=== PATIENT | male | born 1950 | race Caucasian/White ===

== ENCOUNTER 2016-07-01 11:54 | Inpatient (IN) | payer MEDICARE, OTHER ==
[~2016-07-01] VITALS: Ht 170.2 cm; Wt 63.5 kg
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
--- NOTE | 2016-07-01 12:08 | NUR ---
DR YEE AT BEDSIDE FOR EVAL.
--- NOTE | 2016-07-01 12:27 | NUR ---
PT REFUSING BLOOD DRAW. DR YEE AWARE.
[2016-07-01] MEDS ORDERED: OMEP20CA10 PO (12:38)
[2016-07-01] MEDS ORDERED: ALBU8.5H2 IH (12:38)
[2016-07-01] MEDS ORDERED: LISI2.5T2 PO (12:38)
[2016-07-01] MEDS ORDERED: AMIN30LI4 PO (12:38)
[2016-07-01] MEDS ORDERED: ATOR10TA PO (12:38)
[2016-07-01] MEDS ORDERED: MELA5TAB PO (12:38)
[2016-07-01] MEDS ORDERED: MULT-659 PO (12:38)
[2016-07-01] MEDS ORDERED: INSU300I SQ (12:38)
[2016-07-01] MEDS ORDERED: DOCU-270 PO (12:38)
[2016-07-01] MEDS ORDERED: ACET-2605 PO (12:38)
[2016-07-01] MEDS ORDERED: GABA-534 PO (12:38)
[2016-07-01] MEDS ORDERED: CARV3.122 PO (12:38)
[2016-07-01] MEDS ORDERED: ACET-868 PO (12:38)
[2016-07-01] MEDS ORDERED: CLON0.5T4 PO (12:38)
[2016-07-01] MEDS ORDERED: POLY15DR17 EACHEYE (12:38)
[2016-07-01] MEDS ORDERED: FURO40TA5 PO (12:38)
[2016-07-01] MEDS ORDERED: BACL10TA PO (12:38)
[2016-07-01] MEDS ORDERED: MAGN400T26 PO (12:38)
[2016-07-01] MEDS ORDERED: TRAM50TA2 PO (12:38)
--- NOTE | 2016-07-01 12:40 | NUR ---
dairy and food laboratory assistant at bedside for blood draw.
--- NOTE | 2016-07-01 12:41 | NUR ---
pt to radiology for head and c spine ct scan via [facility].
[2016-07-01 12:43] LABS: BASOPHILS # (AUTO) 0.3 /CMM (0.0-0.2); EOSINOPHILS # (AUTO) 0.5 /CMM (0.0-0.7); MEAN CORPUSCULAR HGB CONC 33 g/dl (31.0-36.0); MONOCYTES # (AUTO) 1.1 /CMM (0.1-1.30)
[2016-07-01 12:45] LABS: BASOPHILS % (AUTO) 2.6 % (0.0-2.0); EOSINOPHILS % (AUTO) 4.1 % (0.0-6.0); HEMATOCRIT 46 % (39-51); HEMOGLOBIN 15.3 g/dL (13.5-17.5); LYMPHOCYTES # (AUTO) 2.6 /CMM (0.8-4.8); LYMPHOCYTES % (AUTO) 19.5 % (20.0-44.0); MEAN CORPUSCULAR HEMOGLOBIN 29 PG (26.0-33.0); MEAN CORPUSCULAR VOLUME 88 fL (80-96); MONOCYTES % (AUTO) 7.9 % (2.0-12.0); NEUTROPHILS # (AUTO) 8.8 /CMM (1.8-8.9); NEUTROPHILS % (AUTO) 65.9 % (43.0-81.0); PLATELET COUNT (AUTO) 113 /CMM (150-450); RDW COEFFICIENT OF VARIATION 12.4 (11.5-15.0); WHITE BLOOD COUNT (AUTO) 13.3 K/uL (4.3-11.0)
[2016-07-01 12:52] LABS: CALCIUM, SERUM 8.8 mg/dL (8.5-10.1); CARBON DIOXIDE 28 mmol/L (21-32); CHLORIDE 102 mmol/L (98-107); CREATININE 1.6 mg/dL (0.6-1.3); GFR 43 mL/min (>60); GLUCOSE 273 mg/dL (74-106); POTASSIUM 5.2 mmol/L (3.5-5.1); SODIUM SERUM 133 mmol/L (136-145); UREA NITROGEN, BLOOD 39 mg/dL (7-18)
[2016-07-01 12:56] LABS: INR 1.04 (0.87-1.13); PROTHROMBIN TIME 10.8 SECS (9.5-12.7)
[2016-07-01 13:01] LABS: TROPONIN I < 0.017 ng/mL (0.00-0.056)
--- NOTE | 2016-07-01 13:49 | NUR ---
CALLED SARAH FOR TRANSPORT BACK TO [facility], ETA 90 MIN
--- NOTE | 2016-07-01 15:32 | NUR ---
PT TRANSPORTED BACK TO SNF IN STABLE CONDITION.
[2016-07-01 17:14] LABS: THYROID STIMULATING HORMONE 3.213 uIU/mL (0.358-3.74)
[2016-07-02] MEDS ORDERED: FURO-144 PO (03:30)
[2016-07-02] MEDS ORDERED: OMEP20TA68 PO (03:30)
[2016-07-02] MEDS ORDERED: ALBU8.5H2 INH (03:30)
[2016-07-02] MEDS ORDERED: ATOR80TA PO (03:30)
[2016-07-02] MEDS ORDERED: DOCU-25 PO (03:30)
[2016-07-02] MEDS ORDERED: INSU300I SQ (03:30)
[2016-07-02] MEDS ORDERED: ACET325T53 PO (03:30)
[2016-07-02] MEDS ORDERED: CLON0.5T4 PO (03:30)
[2016-07-02] MEDS ORDERED: LISI2.5T2 PO (03:30)
[2016-07-02] MEDS ORDERED: GABA-534 PO (03:30)
[2016-07-02] MEDS ORDERED: MELA5TAB PO (03:30)
[2016-07-02] MEDS ORDERED: CRAN400T4 PO (03:30)
[2016-07-02] MEDS ORDERED: MULT1TAB73 PO (03:30)
[2016-07-02] MEDS ORDERED: CARV3.122 PO (03:30)
[2016-07-02] MEDS ORDERED: MAGN400T26 PO (03:30)
[2016-07-02] MEDS ORDERED: MAG HYDROX/AL HYDROX/SIMETH 30 ML UDC PO PRN (04:00)
[2016-07-02] MEDS ORDERED: MAGNESIUM HYDROXIDE 30 ML UDC PO PRN (04:00)
[2016-07-02] MEDS ORDERED: ACETAMINOPHEN 325 MG TABLET PO PRN (04:00)
--- NOTE | 2016-07-02 04:31 | NUR ---
GPS/RN NOTE: ADMITTED FROM [facility], INITIALLY CAME FROM [facility], ARRIVED TO THE UNIT AROUND 0240 ACCOMPANIED BY PARAMEDICS VIA STRETCHER. PATIENT ADMITTED ON 5150 HOLD FOR GD. PER HOLD PATIENT WAS AGITATED, CONFUSED, DISORGANIZED, THREATENING STAFF, COMBATIVE, YELLING, SCREAMING, UNABLE TO PROVIDE CARE FOR HIMSELF. PATIENT WAS PLACED IN BED COMFORTABLY, THE 5150 HOLD WAS REVIEWED AND THE DOCUMENTATION APPEARS TO REFLECT THE PRESENTATION OF THE PATIENT. AWAKE, ALERT, ORIENTED X1, CONFUSED, AGITATED, DISORGANIZED, SHOWS NO S/S OF ANY PAIN, NO APPARENT DISTRESS NOTED. RESPIRATION EVEN, BREATHING PATTERN NON-LABORED. COMBATIVE, REFUSED SKIN ASSESSMENT AT THIS TIME. POOR JUDGEMENT, POOR INSIGHT, UNKEMPT, DISHEVELED, POOR HYGIENE. PATIENT IS UNDER THE PSYCHIATRIC SERVICE OF DR. MARTINEZ AND UNDER THE MEDICAL CARE OF Estvean CARVALHO. BELONGINGS CHECKED FOR CONTRABAND. ADVANCED DIRECTIVE PREFERENCE, IMMUNIZATION QUESTIONNAIRE, VALUABLES PUT IN TO SAFE. NEED MED RECON IN AM WITH DR. SINAI Coleman. BED WAS LOCKED AND PLACED ON LOWEST POSITION. WILL CONTINUE TO MONITOR Q 15 MINS. TO MAINTAIN SAFETY.
--- NOTE | 2016-07-02 06:10 | NUR ---
GPS/RN NOTE: UNABLE TO NOTIFY FAMILY ABOUT ADMISSION TO [facility], NO INFORMATION GIVEN.
--- NOTE | 2016-07-02 06:11 | NUR ---
GPS/RN NOTE: MRSA SCREEN DONE.
[2016-07-02 08:00] VITALS: BP 149/95
[2016-07-02] MEDS: GABAPENTIN 300 MG CAPSULE PO SCH (11:30)
[2016-07-02] MEDS: CARVEDILOL 3.125 MG TABLET PO SCH ×2 (11:30→16:41)
[2016-07-02] MEDS: MAGNESIUM OXIDE 400 MG TABLET PO SCH ×2 (11:30→16:41)
[2016-07-02] MEDS: POLYVINYL ALCOHOL 15 ML BOTTLE EACHEYE SCH ×2 (12:00→16:42)
[2016-07-02] MEDS: HEPARIN SODIUM, PORCINE 5000 UNITS/1 ML VIAL SQ SCH ×3 (12:00→21:36)
[2016-07-02] MEDS ORDERED: DEXTROSE 50%-WATER 50 ML DISP.SYRIN IV PRN (12:00)
[2016-07-02] MEDS: PANTOPRAZOLE 40 MG TABLET.DR PO SCH (12:00)
[2016-07-02] MEDS: BLOOD SUGAR DIAGNOSTIC 1 EACH STRIP IN SCH ×3 (12:20→22:00)
[2016-07-02] MEDS: INSULIN REGULAR, HUMAN 100 UNIT/ML 3 ML VIAL SQ PRN ×2 (12:22→12:33)
--- NOTE | 2016-07-02 12:31 | NUR ---
BS IS 328, PT. REFUSED FOR 8 UNITS OF HUMULIN R, EXPLAINED ON THE IMPORTANCE AND STILL REFUSING AND SAID " I DON'T CARE IF IT'S HIGH, I DON'T WANT IT'. CHARGE NURSE MADE AWARE
--- NOTE | 2016-07-02 12:40 | NUR ---
PT. REFUSED TO TAKE PO MEDS AND REFUSED HEPARIN INJECTION, EXPLAINED ON THE IMPORTANCE AND THE RISK OF NOT TAKING AND PT. STILL REFUSING AND SAID " I DON'T WANT NOTHING". WILL CONTINUE TO MONITOR.
--- NOTE | 2016-07-02 13:00 | NUR ---
PT. REFUSED LABS, WAS EXPLAINED ON THE IMPORTANCE AND PT. STILL REFUSING.
[2016-07-02] MEDS ORDERED: ALBUTEROL FS 2.5 MG/3 ML VIAL.NEB NEB PRN (13:30)
[2016-07-02] MEDS: ALBUTEROL FS 2.5 MG/3 ML VIAL.NEB NEB SCH (15:30)
[2016-07-02 16:00] VITALS: BP 150/90
[2016-07-02] MEDS: QUETIAPINE FUMARATE 25 MG TABLET PO SCH (16:41)
--- NOTE | 2016-07-02 17:33 | NUR ---
PT. REFUSED ACCU CHECK, EXPLAINED ON THE IMPORTANCE AND STILL REFUSING AND SAID I DON'T NEED IT.
--- NOTE | 2016-07-02 17:58 | NUR ---
PT. REFUSED LABS AGAIN AND AND INSISTING TO SAY NO.
--- NOTE | 2016-07-02 19:26 | NUR ---
GPS/RN NOTE: PATIENT RESTING IN BED, AWAKE, ALERT, CONFUSED. NO APPARENT DISTRESS NOTED.
[2016-07-02 20:00] VITALS: BP 108/62
[2016-07-02] MEDS: DIVALPROEX SODIUM 250 MG TABLET.DR PO SCH (21:31)
[2016-07-02] MEDS: INSULIN DETEMIR 100 UNIT/ML CARTRIDGE SQ SCH ×2 (22:00→22:52)
[2016-07-02] MEDS: ATORVASTATIN 10 MG TABLET PO SCH (22:49)
[2016-07-02] MEDS: QUETIAPINE FUMARATE 100 MG TABLET PO SCH (22:50)
[2016-07-03] MEDS: ALBUTEROL FS 2.5 MG/3 ML VIAL.NEB NEB SCH ×4 (00:11→23:30)
[2016-07-03] MEDS: BLOOD SUGAR DIAGNOSTIC 1 EACH STRIP IN SCH ×4 (07:26→21:39)
[2016-07-03] MEDS: INSULIN REGULAR, HUMAN 100 UNIT/ML 3 ML VIAL SQ PRN ×3 (07:28→21:50)
[2016-07-03] MEDS: LORAZEPAM 0.5 MG TABLET PO PRN (08:16)
--- NOTE | 2016-07-03 08:16 | NUR ---
ADMINISTERED ATIVAN 0.5 MG PO PRN FOR ANXIETY, V/S TAKEN, BP-167/92, P-79, CONTINUED MONITORING.
[2016-07-03] MEDS: TRAMADOL HCL 50 MG TABLET PO SCH (08:20)
[2016-07-03] MEDS: MULTIVIT, IRON, MIN NO. 8, FA 1 TAB TABLET PO SCH (08:21)
[2016-07-03] MEDS: CARVEDILOL 3.125 MG TABLET PO SCH ×2 (08:21→17:00)
[2016-07-03] MEDS: DIVALPROEX SODIUM 250 MG TABLET.DR PO SCH ×2 (08:21→21:35)
[2016-07-03] MEDS: MULTIVITAMINS,THERAPEUTIC 1 UDTAB TABLET PO SCH (08:21)
[2016-07-03] MEDS: MAGNESIUM OXIDE 400 MG TABLET PO SCH ×2 (08:21→17:53)
[2016-07-03] MEDS: QUETIAPINE FUMARATE 25 MG TABLET PO SCH ×2 (08:21→17:53)
[2016-07-03] MEDS: PANTOPRAZOLE 40 MG TABLET.DR PO SCH (08:21)
[2016-07-03] MEDS: GABAPENTIN 300 MG CAPSULE PO SCH (08:21)
[2016-07-03] MEDS: DOCUSATE SODIUM 100 MG CAPSULE PO SCH (08:21)
[2016-07-03] MEDS: POLYVINYL ALCOHOL 15 ML BOTTLE EACHEYE SCH ×2 (08:22→17:54)
[2016-07-03] MEDS: HEPARIN SODIUM, PORCINE 5000 UNITS/1 ML VIAL SQ SCH ×2 (08:28→21:36)
[2016-07-03 08:34] VITALS: BP 167/92
[2016-07-03 15:35] LABS: BASOPHILS # (AUTO) 0.1 /CMM (0.0-0.2); BASOPHILS % (AUTO) 0.5 % (0.0-2.0); EOSINOPHILS # (AUTO) 0.4 /CMM (0.0-0.7); EOSINOPHILS % (AUTO) 3.6 % (0.0-6.0); HEMATOCRIT 45 % (39-51); HEMOGLOBIN 15.2 g/dL (13.5-17.5); LYMPHOCYTES # (AUTO) 3.1 /CMM (0.8-4.8); LYMPHOCYTES % (AUTO) 26.5 % (20.0-44.0); MEAN CORPUSCULAR HEMOGLOBIN 29 PG (26.0-33.0); MEAN CORPUSCULAR HGB CONC 33 g/dl (31.0-36.0); MEAN CORPUSCULAR VOLUME 88 fL (80-96); MONOCYTES # (AUTO) 0.8 /CMM (0.1-1.30); MONOCYTES % (AUTO) 7.2 % (2.0-12.0); NEUTROPHILS # (AUTO) 7.3 /CMM (1.8-8.9); NEUTROPHILS % (AUTO) 62.2 % (43.0-81.0); PLATELET COUNT (AUTO) 181 /CMM (150-450); RDW COEFFICIENT OF VARIATION 13.6 (11.5-15.0); RED BLOOD CELL COUNT(AUTO) 5.17 MIL/uL (4.5-6.0); WHITE BLOOD COUNT (AUTO) 11.7 K/uL (4.3-11.0)
[2016-07-03 15:59] LABS: ALBUMIN 3.5 g/dL (3.4-5.0); BILIRUBIN,TOTAL 0.4 mg/dL (0.2-1.0); CALCIUM, SERUM 8.8 mg/dL (8.5-10.1); CREATININE 1.7 mg/dL (0.6-1.3); MAGNESIUM 2.4 mg/dL (1.8-2.4); PHOSPHORUS 3.6 mg/dL (2.5-4.9); POTASSIUM 4.8 mmol/L (3.5-5.1); TOTAL PROTEIN, SERUM 7.9 g/dL (6.4-8.2)
[2016-07-03 16:06] VITALS: BP 104/62
[2016-07-03 20:00] VITALS: BP 104/64
[2016-07-03] MEDS: TEMAZEPAM 7.5 MG CAPSULE PO PRN (21:40)
[2016-07-03] MEDS: ATORVASTATIN 10 MG TABLET PO SCH (21:40)
[2016-07-03] MEDS: QUETIAPINE FUMARATE 100 MG TABLET PO SCH (21:40)
[2016-07-03] MEDS: INSULIN DETEMIR 100 UNIT/ML CARTRIDGE SQ SCH (21:48)
[2016-07-04] MEDS: ALBUTEROL FS 2.5 MG/3 ML VIAL.NEB NEB SCH ×3 (07:35→23:30)
[2016-07-04] MEDS: BLOOD SUGAR DIAGNOSTIC 1 EACH STRIP IN SCH ×4 (07:40→21:48)
[2016-07-04] MEDS: INSULIN REGULAR, HUMAN 100 UNIT/ML 3 ML VIAL SQ PRN ×2 (07:41→12:15)
[2016-07-04 08:00] VITALS: BP 145/90
[2016-07-04] MEDS: GABAPENTIN 300 MG CAPSULE PO SCH (09:08)
[2016-07-04] MEDS: LORAZEPAM 0.5 MG TABLET PO PRN ×2 (09:08→09:13)
[2016-07-04] MEDS: QUETIAPINE FUMARATE 25 MG TABLET PO SCH ×2 (09:08→16:50)
[2016-07-04] MEDS: TRAMADOL HCL 50 MG TABLET PO SCH (09:09)
[2016-07-04] MEDS: CARVEDILOL 3.125 MG TABLET PO SCH ×2 (09:10→16:51)
[2016-07-04] MEDS: DIVALPROEX SODIUM 250 MG TABLET.DR PO SCH ×2 (09:10→21:00)
--- NOTE | 2016-07-04 09:14 | NUR ---
ADMINISTERED ATIVAN 0.5 MG PO PRN FOR ANXIETY, IRRITABLE, V/S TAKEN BP-145/90, P-90, CONTINUED MONITORING.
[2016-07-04] MEDS: PANTOPRAZOLE 40 MG TABLET.DR PO SCH (09:16)
[2016-07-04] MEDS: MAGNESIUM OXIDE 400 MG TABLET PO SCH ×2 (09:16→16:36)
[2016-07-04] MEDS: MULTIVITAMINS,THERAPEUTIC 1 UDTAB TABLET PO SCH (09:16)
[2016-07-04] MEDS: MULTIVIT, IRON, MIN NO. 8, FA 1 TAB TABLET PO SCH (09:16)
[2016-07-04] MEDS: DOCUSATE SODIUM 100 MG CAPSULE PO SCH (09:16)
[2016-07-04] MEDS: POLYVINYL ALCOHOL 15 ML BOTTLE EACHEYE SCH ×2 (09:17→16:36)
[2016-07-04] MEDS: HEPARIN SODIUM, PORCINE 5000 UNITS/1 ML VIAL SQ SCH ×2 (09:18→21:00)
[2016-07-04 16:00] VITALS: BP 110/63
[2016-07-04 20:19] VITALS: BP 147/99
--- NOTE | 2016-07-04 21:44 | NUR ---
GPS/RN NOTE: PATIENT REFUSED DEPAKOTE 250 MG TAB, OFFERED 2X, STILL REFUSED. PATIENT STATED," SHUT UP."
--- NOTE | 2016-07-04 21:45 | NUR ---
GPS/RN NOTE: HEPARIN 5,000 UNITS SC REFUSED, OFFERED 2X, STILL REFUSED. PATIENT STATED, " SHUT UP."
--- NOTE | 2016-07-04 21:48 | NUR ---
GPS/RN NOTE: PATIENT REFUSED ACCUCHECK 2X. PATIENT STATED, " SHUT UP."
[2016-07-04] MEDS: INSULIN DETEMIR 100 UNIT/ML CARTRIDGE SQ SCH (21:50)
--- NOTE | 2016-07-04 21:50 | NUR ---
GPS/RN NOTE: NO LEVEMIR INSULIN ADMINISTERED, PATIENT REFUSED TO DO ACCUCHECK AT 2200.
[2016-07-04] MEDS: ATORVASTATIN 10 MG TABLET PO SCH (21:51)
--- NOTE | 2016-07-04 21:51 | NUR ---
GPS/RN NOTE: PATIENT REFUSED LIPITOR 10 MG TAB, OFFERED 2X, STILL REFUSED. PATIENT STATED, " SHUT UP."
[2016-07-04] MEDS: QUETIAPINE FUMARATE 100 MG TABLET PO SCH (21:56)
--- NOTE | 2016-07-04 21:57 | NUR ---
GPS/RN NOTE: SEROQUEL TAB PO REFUSED, OFFERED 2X, STILL REFUSED. PATIENT STATED," SHUT UP."
[2016-07-05] MEDS: TEMAZEPAM 7.5 MG CAPSULE PO PRN (02:09)
--- NOTE | 2016-07-05 02:09 | NUR ---
GPS RN NOTE, PATIENT HAS A COMPLAINT OF NOT BEING ABLE TO SLEEP AND WOULD LIKE A SLEEPING AID AT THIS TIME. PATIENT VITAL SIGNS ARE STABLE. GAVE RESTORIL 7.5MG PO HS ORDERED. WILL REASSESS FOR INSOMNIA AND I WILL CONTINUE TO MONITOR THIS PATIENT.
[2016-07-05] MEDS: BACLOFEN (10 MG) 10 MG TABLET PO PRN (02:28)
--- NOTE | 2016-07-05 02:28 | NUR ---
GPS RN NOTE, PATIENT HAS A COMPLAINT OF MUSCLE SPASM AND WOULD LIKE MEDICATION AT THIS TIME. PATIENT VITAL SIGNS ARE STABLE. GAVE BACLOFEN 10MG PO BID ORDERED. WILL REASSESS FOR SPASM AND I WILL CONTINUE TO MONITOR THIS PATIENT.
[2016-07-05] MEDS: BLOOD SUGAR DIAGNOSTIC 1 EACH STRIP IN SCH ×4 (07:55→22:23)
[2016-07-05] MEDS: DOCUSATE SODIUM 100 MG CAPSULE PO SCH (07:56)
[2016-07-05] MEDS: PANTOPRAZOLE 40 MG TABLET.DR PO SCH (07:56)
[2016-07-05] MEDS: POLYVINYL ALCOHOL 15 ML BOTTLE EACHEYE SCH ×2 (07:56→16:23)
[2016-07-05] MEDS: MULTIVITAMINS,THERAPEUTIC 1 UDTAB TABLET PO SCH (07:57)
[2016-07-05] MEDS: MULTIVIT, IRON, MIN NO. 8, FA 1 TAB TABLET PO SCH (07:57)
[2016-07-05] MEDS: TRAMADOL HCL 50 MG TABLET PO SCH (07:57)
[2016-07-05] MEDS: DIVALPROEX SODIUM 250 MG TABLET.DR PO SCH ×2 (07:57→21:53)
[2016-07-05] MEDS: GABAPENTIN 300 MG CAPSULE PO SCH (07:59)
[2016-07-05] MEDS: CARVEDILOL 3.125 MG TABLET PO SCH ×2 (07:59→16:23)
[2016-07-05] MEDS: QUETIAPINE FUMARATE 25 MG TABLET PO SCH ×3 (07:59→22:23)
[2016-07-05] MEDS: MAGNESIUM OXIDE 400 MG TABLET PO SCH ×2 (07:59→16:23)
[2016-07-05 08:00] VITALS: BP 145/65
[2016-07-05] MEDS: HEPARIN SODIUM, PORCINE 5000 UNITS/1 ML VIAL SQ SCH ×2 (08:00→21:53)
[2016-07-05] MEDS: INSULIN REGULAR, HUMAN 100 UNIT/ML 3 ML VIAL SQ PRN ×4 (08:04→22:07)
[2016-07-05] MEDS: ALBUTEROL FS 2.5 MG/3 ML VIAL.NEB NEB SCH ×3 (08:59→23:30)
--- NOTE | 2016-07-05 15:43 | NUR ---
[facility] [address] [facility] [place] [address]. ([phone]). Patient does not have a person to contact. press worker helper spoke to Bere ([phone]) from the facility who confirmed that patient may return to the facility upon discharge. press worker helper will help form a safe and proper discharge.
--- NOTE | 2016-07-05 15:45 | NUR ---
Psychosocial assessment was reviewed and I concur with the information provided. No changes are necessary. Tracey Todd, [facility] [id number] Addendum: 07/05/16 at 1546 by TRACEY TODD SW Amended: Links added.
[2016-07-05 16:00] VITALS: BP 121/66
[2016-07-05 19:56] VITALS: BP 132/56
[2016-07-05] MEDS: ATORVASTATIN 10 MG TABLET PO SCH (21:55)
[2016-07-05] MEDS: INSULIN DETEMIR 100 UNIT/ML CARTRIDGE SQ SCH (22:11)
[2016-07-05] MEDS: QUETIAPINE FUMARATE 100 MG TABLET PO SCH (22:28)
--- NOTE | 2016-07-06 07:07 | NUR ---
PT. REFUSED AM LABS ENCOURAGED FOR LABS STILL REFUSED
[2016-07-06] MEDS: PANTOPRAZOLE 40 MG TABLET.DR PO SCH (07:30)
[2016-07-06] MEDS: BLOOD SUGAR DIAGNOSTIC 1 EACH STRIP IN SCH ×4 (07:30→21:22)
[2016-07-06] MEDS: ALBUTEROL FS 2.5 MG/3 ML VIAL.NEB NEB SCH ×3 (07:35→23:15)
[2016-07-06 08:38] VITALS: BP 149/80
[2016-07-06] MEDS: MULTIVIT, IRON, MIN NO. 8, FA 1 TAB TABLET PO SCH (08:48)
[2016-07-06] MEDS: MAGNESIUM OXIDE 400 MG TABLET PO SCH ×2 (08:48→17:57)
[2016-07-06] MEDS: QUETIAPINE FUMARATE 25 MG TABLET PO SCH ×2 (08:48→17:57)
[2016-07-06] MEDS: HEPARIN SODIUM, PORCINE 5000 UNITS/1 ML VIAL SQ SCH ×2 (08:48→21:14)
[2016-07-06] MEDS: GABAPENTIN 300 MG CAPSULE PO SCH (08:48)
[2016-07-06] MEDS: DIVALPROEX SODIUM 250 MG TABLET.DR PO SCH ×2 (08:48→21:12)
[2016-07-06] MEDS: MULTIVITAMINS,THERAPEUTIC 1 UDTAB TABLET PO SCH (08:49)
[2016-07-06] MEDS: TRAMADOL HCL 50 MG TABLET PO SCH (08:49)
[2016-07-06] MEDS: DOCUSATE SODIUM 100 MG CAPSULE PO SCH (08:49)
[2016-07-06] MEDS: CARVEDILOL 3.125 MG TABLET PO SCH ×2 (08:50→17:57)
[2016-07-06] MEDS: POLYVINYL ALCOHOL 15 ML BOTTLE EACHEYE SCH ×2 (08:51→17:58)
[2016-07-06 10:18] LABS: *SPE ALBUMIN 3.8 g/dL (2.9-4.4); *SPE ALPHA-1-GLOBULIN 0.2 g/dL (0.0-0.4); *SPE ALPHA-2-GLOBULIN 0.9 g/dL (0.4-1.0); *SPE BETA GLOBULIN 1.1 g/dL (0.7-1.3); *SPE GLOBULIN, TOTAL 3.8 g/dL (2.2-3.9); *SPE M-SPIKE Not Observed g/dL (Not Observed); *SPE PROTEIN TOTAL 7.6 g/dL (6.0-8.5); *SPEGAMMA GLOBULIN 1.6 g/dL (0.4-1.8)
[2016-07-06 16:00] VITALS: BP 148/99
[2016-07-06] MEDS: INSULIN REGULAR, HUMAN 100 UNIT/ML 3 ML VIAL SQ PRN ×2 (17:45→21:26)
[2016-07-06 20:56] VITALS: BP 101/54
[2016-07-06] MEDS: QUETIAPINE FUMARATE 100 MG TABLET PO SCH (21:12)
[2016-07-06] MEDS: ATORVASTATIN 10 MG TABLET PO SCH (21:13)
[2016-07-06] MEDS: INSULIN DETEMIR 100 UNIT/ML CARTRIDGE SQ SCH (21:49)
[2016-07-07] MEDS: ALBUTEROL FS 2.5 MG/3 ML VIAL.NEB NEB SCH ×3 (07:35→23:30)
[2016-07-07 08:00] VITALS: BP 151/86
[2016-07-07] MEDS: BLOOD SUGAR DIAGNOSTIC 1 EACH STRIP IN SCH ×4 (08:33→22:05)
[2016-07-07] MEDS: MULTIVIT, IRON, MIN NO. 8, FA 1 TAB TABLET PO SCH (08:34)
[2016-07-07] MEDS: QUETIAPINE FUMARATE 25 MG TABLET PO SCH ×2 (08:34→17:13)
[2016-07-07] MEDS: MULTIVITAMINS,THERAPEUTIC 1 UDTAB TABLET PO SCH (08:34)
[2016-07-07] MEDS: TRAMADOL HCL 50 MG TABLET PO SCH (08:34)
[2016-07-07] MEDS: MAGNESIUM OXIDE 400 MG TABLET PO SCH ×2 (08:34→17:12)
[2016-07-07] MEDS: PANTOPRAZOLE 40 MG TABLET.DR PO SCH (08:34)
[2016-07-07] MEDS: DOCUSATE SODIUM 100 MG CAPSULE PO SCH (08:34)
[2016-07-07] MEDS: GABAPENTIN 300 MG CAPSULE PO SCH (08:34)
[2016-07-07] MEDS: DIVALPROEX SODIUM 250 MG TABLET.DR PO SCH ×3 (08:34→21:00)
[2016-07-07] MEDS: CARVEDILOL 3.125 MG TABLET PO SCH ×2 (08:37→17:13)
[2016-07-07] MEDS: HEPARIN SODIUM, PORCINE 5000 UNITS/1 ML VIAL SQ SCH ×2 (08:41→21:00)
[2016-07-07] MEDS: INSULIN REGULAR, HUMAN 100 UNIT/ML 3 ML VIAL SQ PRN ×3 (08:46→22:06)
[2016-07-07] MEDS: POLYVINYL ALCOHOL 15 ML BOTTLE EACHEYE SCH ×2 (08:47→17:00)
[2016-07-07 13:34] LABS: PTH, INTACT 33 pg/mL (15-65)
--- NOTE | 2016-07-07 15:37 | NUR ---
GPS RN NOTE: DR GUTIERRES NOTIFIED OF PT HASN'T VOIDED SINCE MORNING NO NEW ORDERS AT THIS TIME
[2016-07-07 16:09] VITALS: BP 134/75
--- NOTE | 2016-07-07 18:30 | NUR ---
GPS RN NOTE: STRAIGHT CATCH DONE PT TOLERATED WELL HAD 1000 CC OUT WILL INDORSE TO INCOMING SHIFT TO MONITORING FOR OUTPUT AND RETENTION
[2016-07-07 20:03] VITALS: BP 90/56
[2016-07-07 20:43] LABS: BASOPHILS # (AUTO) 0.1 /CMM (0.0-0.2); BASOPHILS % (AUTO) 0.7 % (0.0-2.0); EOSINOPHILS # (AUTO) 0.5 /CMM (0.0-0.7); EOSINOPHILS % (AUTO) 3.6 % (0.0-6.0); HEMATOCRIT 46 % (39-51); HEMOGLOBIN 15.2 g/dL (13.5-17.5); LYMPHOCYTES # (AUTO) 3.1 /CMM (0.8-4.8); MEAN CORPUSCULAR HEMOGLOBIN 29 PG (26.0-33.0); MEAN CORPUSCULAR HGB CONC 33 g/dl (31.0-36.0); MEAN CORPUSCULAR VOLUME 89 fL (80-96); MONOCYTES # (AUTO) 1.3 /CMM (0.1-1.30); MONOCYTES % (AUTO) 8.8 % (2.0-12.0); NEUTROPHILS # (AUTO) 10.3 /CMM (1.8-8.9); NEUTROPHILS % (AUTO) 66.9 % (43.0-81.0); PLATELET COUNT (AUTO) 161 /CMM (150-450); RDW COEFFICIENT OF VARIATION 13.9 (11.5-15.0); RED BLOOD CELL COUNT(AUTO) 5.22 MIL/uL (4.5-6.0); WHITE BLOOD COUNT (AUTO) 15.4 K/uL (4.3-11.0)
[2016-07-07 20:53] LABS: CALCIUM, SERUM 9.2 mg/dL (8.5-10.1); CREATININE 1.8 mg/dL (0.6-1.3); POTASSIUM 5.1 mmol/L (3.5-5.1)
[2016-07-07 21:02] LABS: INR 1.02 (0.87-1.13); PROTHROMBIN TIME 10.9 SECS (9.5-12.7)
[2016-07-07] MEDS: QUETIAPINE FUMARATE 100 MG TABLET PO SCH (22:00)
[2016-07-07] MEDS: INSULIN DETEMIR 100 UNIT/ML CARTRIDGE SQ SCH (22:00)
[2016-07-07] MEDS: ATORVASTATIN 10 MG TABLET PO SCH (22:00)
--- NOTE | 2016-07-07 22:27 | NUR ---
GPS RN NOTES ; PT. REFUSED ALL NIGHT MEDS ENCOURAGED X 3 STILL REFUSED EXPLAIN RISKS AND BENEFITS STILL REFUSED, NOTIFY CHARGE NURSE ,
--- NOTE | 2016-07-07 22:31 | NUR ---
GPS RN NOTES ; AT 2200 , BS SUGAR 198 PT. REFUSED INSULIN COVERAGE ENCOURAGED X3 STILL REFUSED EXPLAIN RISKS AND BENEFITS
[2016-07-07 23:00] VITALS: BP 112/68
--- NOTE | 2016-07-07 23:30 | NUR ---
GPS RN NOTES; PT. REFUSED @ 7064 BREATHING TREATMENT ENCOURAGE FOR BREATHING TREATMENT STILL REFUSED
--- NOTE | 2016-07-08 06:31 | NUR ---
GPS RN NOTES ; PT REFUSED AM LABS ENCOURAGED FOR LABS STILL REFUSED .
--- NOTE | 2016-07-08 06:32 | NUR ---
GPS RN NOTES; PT. SLEPT 7.5 HR , INCONTINENT X2 , BM X I , DENIES ANY PAIN/ DISCOMFORT DURING SHIFT NO ACUTE DISTRESS NOTED, WILL ENDORSE TO NEXT SHIFT FOR CONTINUITY OF CARE
[2016-07-08] MEDS: BLOOD SUGAR DIAGNOSTIC 1 EACH STRIP IN SCH ×4 (07:30→22:00)
[2016-07-08] MEDS: PANTOPRAZOLE 40 MG TABLET.DR PO SCH (07:30)
[2016-07-08] MEDS: ALBUTEROL FS 2.5 MG/3 ML VIAL.NEB NEB SCH ×2 (07:35→15:11)
[2016-07-08 08:33] VITALS: BP 145/94
[2016-07-08] MEDS: MAGNESIUM OXIDE 400 MG TABLET PO SCH ×2 (09:00→16:58)
[2016-07-08] MEDS: POLYVINYL ALCOHOL 15 ML BOTTLE EACHEYE SCH ×2 (09:00→17:00)
[2016-07-08] MEDS: MULTIVITAMINS,THERAPEUTIC 1 UDTAB TABLET PO SCH (09:00)
[2016-07-08] MEDS: HEPARIN SODIUM, PORCINE 5000 UNITS/1 ML VIAL SQ SCH ×2 (09:00→21:00)
[2016-07-08] MEDS: MULTIVIT, IRON, MIN NO. 8, FA 1 TAB TABLET PO SCH (09:00)
[2016-07-08] MEDS: QUETIAPINE FUMARATE 25 MG TABLET PO SCH ×2 (10:12→16:58)
[2016-07-08] MEDS: CARVEDILOL 3.125 MG TABLET PO SCH ×2 (10:13→16:58)
[2016-07-08] MEDS: DIVALPROEX SODIUM 250 MG TABLET.DR PO SCH ×3 (10:13→21:05)
[2016-07-08] MEDS: GABAPENTIN 300 MG CAPSULE PO SCH (10:13)
[2016-07-08] MEDS: DOCUSATE SODIUM 100 MG CAPSULE PO SCH (10:13)
[2016-07-08] MEDS: TRAMADOL HCL 50 MG TABLET PO SCH (10:14)
[2016-07-08 15:33] VITALS: BP 133/64
[2016-07-08] MEDS: INSULIN REGULAR, HUMAN 100 UNIT/ML 3 ML VIAL SQ PRN (17:01)
[2016-07-08 20:00] VITALS: BP 129/84
[2016-07-08] MEDS: INSULIN DETEMIR 100 UNIT/ML CARTRIDGE SQ SCH (22:00)
--- NOTE | 2016-07-08 22:00 | NUR ---
PT REFUSED BLOOD SUGAR TO BE CHECKED. EXPLAIN THE RISK AND BENEFITS. PT STILL REFUSED.
[2016-07-08] MEDS: TEMAZEPAM 7.5 MG CAPSULE PO PRN (22:23)
[2016-07-08] MEDS: QUETIAPINE FUMARATE 100 MG TABLET PO SCH (22:23)
[2016-07-08] MEDS: ATORVASTATIN 10 MG TABLET PO SCH (22:23)
[2016-07-09] MEDS: ALBUTEROL FS 2.5 MG/3 ML VIAL.NEB NEB SCH ×4 (01:58→23:30)
[2016-07-09 06:30] LABS: APPEARANCE,URINE CLEAR (CLEAR); BILIRUBIN,URINE NEGATIVE (NEGATIVE); BLOOD, URINE NEGATIVE Ery/uL (NEGATIVE); COLOR,URINE YELLOW (YELLOW); KETONES,URINE NEGATIVE (NEGATIVE); LEUKOCYTE ESTERASE ,URINE TRACE (NEGATIVE); NITRITE, URINE NEGATIVE (NEGATIVE); PH,URINE 5.5 (5.0-8.0); PROTEIN,URINE NEGATIVE (NEGATIVE); UGLUCOSE NEGATIVE (NEGATIVE); UROBILINOGEN,URINE 0.2 EU/dL (0.2)
[2016-07-09 06:53] LABS: ADD URINE CULTURE NO; BACTERIA,URINE None seen /HPF (None Seen); RBC,URINE 0-2 /HPF (0-2); SQUAMOUS EPITHELIAL CELL,UR Few /HPF (None Seen)
[2016-07-09] MEDS: PANTOPRAZOLE 40 MG TABLET.DR PO SCH (07:30)
[2016-07-09] MEDS: BLOOD SUGAR DIAGNOSTIC 1 EACH STRIP IN SCH ×4 (07:30→22:00)
[2016-07-09] MEDS: GABAPENTIN 300 MG CAPSULE PO SCH (08:18)
[2016-07-09] MEDS: QUETIAPINE FUMARATE 25 MG TABLET PO SCH ×2 (08:19→17:00)
[2016-07-09] MEDS: DIVALPROEX SODIUM 250 MG TABLET.DR PO SCH ×3 (08:19→22:15)
[2016-07-09] MEDS: CARVEDILOL 3.125 MG TABLET PO SCH ×2 (08:19→17:00)
[2016-07-09] MEDS: TRAMADOL HCL 50 MG TABLET PO SCH (08:20)
[2016-07-09] MEDS: HEPARIN SODIUM, PORCINE 5000 UNITS/1 ML VIAL SQ SCH (08:21)
[2016-07-09] MEDS: MULTIVIT, IRON, MIN NO. 8, FA 1 TAB TABLET PO SCH (08:31)
[2016-07-09] MEDS: MAGNESIUM OXIDE 400 MG TABLET PO SCH ×2 (08:31→17:00)
[2016-07-09] MEDS: DOCUSATE SODIUM 100 MG CAPSULE PO SCH (08:31)
[2016-07-09] MEDS: POLYVINYL ALCOHOL 15 ML BOTTLE EACHEYE SCH ×2 (08:31→17:00)
[2016-07-09 08:32] VITALS: BP 136/54
[2016-07-09] MEDS: MULTIVITAMINS,THERAPEUTIC 1 UDTAB TABLET PO SCH (08:32)
--- NOTE | 2016-07-09 15:24 | NUR ---
GPS RN: PATIENT REFUSED BLOOD DRAW X3, AGITATED, COMBATIVE, KICKING, AND VERBALLY ABUSIVE.
[2016-07-09 16:18] VITALS: BP 124/62
--- NOTE | 2016-07-09 18:34 | NUR ---
GPS RN: PATIENT REFUSED 1700 MEDICATIONS AND ACCUCHECK THROUGHOUT THIS SHIFT. PATIENT IS RESISTIVE WITH CARE, GETS HIGHLY AGITATED, COMBATIVE, AND VERBALLY ABUSIVE WHEN OFFERED MEDICATIONS AND ACCUCHECK. PATIENT KEPT CLEAN AND DRY THROUGHOUT THE SHIFT, HOWEVER, REFUSED TO BE TURNED AND REPOSITIONED, PREFERS TO STAY IN SUPINE POSITION. PATIENT NOTED WITH REDNESS AND EXCORIATION ON THE SACRAL AREA, APPLIED MEPILEX AND Z-GUARD, ORDERED WOUND CONSULT. PATIENT IS NOT IN DISTRESS, VS STABLE, CONTINUE TO MONITOR AND ENDORSE TO THE UPCOMING SHIFT ACCORDINGLY.
[2016-07-09 20:00] VITALS: BP 134/62
--- NOTE | 2016-07-09 21:00 | NUR ---
PT REFUSED BLOOD SUGAR TO BE CHECKED. EXPLAIN THE RISK AND BENEFITS. PT STILL REFUSED. ATTEMPTED TO REPOSITIONED THE PATIENT. PATIENT REFUSED TO BE TURNED AND REPOSITIONED. PT IS VERBALLY ABUSIVE, COMBATIVE. EXPLAIN THE RISK AND BENEFITS. PATIENT NOTED WITH REDNESS AND EXCORIATION ON THE SACRAL AREA. APPLIED MEPILEX AND Z-GUARD. KEPT CLEAN AND DRY AT ALL TIMES. WILL CONTINUE TO MONITOR FOR SAFETY.
[2016-07-09] MEDS: INSULIN DETEMIR 100 UNIT/ML CARTRIDGE SQ SCH (22:00)
[2016-07-09] MEDS: ATORVASTATIN 10 MG TABLET PO SCH (22:15)
[2016-07-09] MEDS: QUETIAPINE FUMARATE 100 MG TABLET PO SCH (22:16)
[2016-07-10] MEDS: PANTOPRAZOLE 40 MG TABLET.DR PO SCH (07:30)
[2016-07-10] MEDS: BLOOD SUGAR DIAGNOSTIC 1 EACH STRIP IN SCH ×4 (07:30→22:00)
[2016-07-10 08:00] VITALS: BP 156/96
[2016-07-10] MEDS: POLYVINYL ALCOHOL 15 ML BOTTLE EACHEYE SCH ×2 (09:00→16:02)
[2016-07-10] MEDS: GABAPENTIN 300 MG CAPSULE PO SCH (09:00)
[2016-07-10] MEDS: TRAMADOL HCL 50 MG TABLET PO SCH (09:00)
[2016-07-10] MEDS: MULTIVITAMINS,THERAPEUTIC 1 UDTAB TABLET PO SCH (09:00)
[2016-07-10] MEDS: DIVALPROEX SODIUM 250 MG TABLET.DR PO SCH ×3 (09:00→21:10)
[2016-07-10] MEDS: QUETIAPINE FUMARATE 25 MG TABLET PO SCH ×2 (09:00→16:02)
[2016-07-10] MEDS: CARVEDILOL 3.125 MG TABLET PO SCH ×2 (09:00→16:02)
[2016-07-10] MEDS: MULTIVIT, IRON, MIN NO. 8, FA 1 TAB TABLET PO SCH (09:00)
[2016-07-10] MEDS: MAGNESIUM OXIDE 400 MG TABLET PO SCH ×2 (09:00→16:02)
[2016-07-10] MEDS: DOCUSATE SODIUM 100 MG CAPSULE PO SCH (09:00)
[2016-07-10] MEDS: ALBUTEROL FS 2.5 MG/3 ML VIAL.NEB NEB SCH ×4 (09:04→23:35)
--- NOTE | 2016-07-10 09:44 | NUR ---
GPS RN NOTE: PT IN BED REFUSED MORNING MEDICATIONS ACCU CHECK REFUSE TO TURNED REPOSITION, REFUSED SKIN ASSESSMENT PT VERBALLY ABUSIVE, COMBATIVE, AGITATED, NON COOPERATIVE, UNABLE TO CONTROL BEHAVIOR WILL CONTINUE MONITORING FOR SAFETY AND BEHAVIOR Q 15 MIN
[2016-07-10] MEDS: LORAZEPAM 0.5 MG TABLET PO PRN (13:43)
--- NOTE | 2016-07-10 15:31 | NUR ---
GPS RN NOTES; PT. REFUSED BREATHING TREATMENT ENCOURAGE FOR BREATHING TREATMENT STILL REFUSED
[2016-07-10 15:56] VITALS: BP 151/90
[2016-07-10] MEDS ORDERED: Z GUARD REMEDY 2 OZ OINT TP PRN (17:00)
--- NOTE | 2016-07-10 17:20 | NUR ---
GPS RN NOTE: PT REFUSED ACCU CHECK IN THIS SHIFT HAD BMX1, URINE X2 WILL CONTINUE MONITORING
[2016-07-10 20:00] VITALS: BP 148/67
[2016-07-10] MEDS: INSULIN DETEMIR 100 UNIT/ML CARTRIDGE SQ SCH (22:00)
[2016-07-10] MEDS: QUETIAPINE FUMARATE 100 MG TABLET PO SCH (22:32)
[2016-07-10] MEDS: ATORVASTATIN 10 MG TABLET PO SCH (22:32)
[2016-07-10] MEDS: TEMAZEPAM 7.5 MG CAPSULE PO PRN (22:32)
[2016-07-11] MEDS: BLOOD SUGAR DIAGNOSTIC 1 EACH STRIP IN SCH ×4 (07:30→21:47)
[2016-07-11] MEDS: ALBUTEROL FS 2.5 MG/3 ML VIAL.NEB NEB SCH ×3 (07:35→23:26)
[2016-07-11 08:00] VITALS: BP 140/78
[2016-07-11] MEDS: DIVALPROEX SODIUM 250 MG TABLET.DR PO SCH ×3 (08:31→21:47)
[2016-07-11] MEDS: DOCUSATE SODIUM 100 MG CAPSULE PO SCH (08:31)
[2016-07-11] MEDS: GABAPENTIN 300 MG CAPSULE PO SCH (08:31)
[2016-07-11] MEDS: QUETIAPINE FUMARATE 25 MG TABLET PO SCH ×2 (08:31→16:50)
[2016-07-11] MEDS: MULTIVIT, IRON, MIN NO. 8, FA 1 TAB TABLET PO SCH (08:31)
[2016-07-11] MEDS: CARVEDILOL 3.125 MG TABLET PO SCH ×2 (08:31→16:50)
[2016-07-11] MEDS: MULTIVITAMINS,THERAPEUTIC 1 UDTAB TABLET PO SCH (08:31)
[2016-07-11] MEDS: TRAMADOL HCL 50 MG TABLET PO SCH (08:31)
[2016-07-11] MEDS: MAGNESIUM OXIDE 400 MG TABLET PO SCH ×2 (08:31→16:49)
[2016-07-11] MEDS: PANTOPRAZOLE 40 MG TABLET.DR PO SCH (08:32)
[2016-07-11] MEDS: POLYVINYL ALCOHOL 15 ML BOTTLE EACHEYE SCH ×2 (08:32→16:50)
[2016-07-11 20:21] VITALS: BP 102/68
[2016-07-11] MEDS: ATORVASTATIN 10 MG TABLET PO SCH (21:47)
[2016-07-11] MEDS: INSULIN DETEMIR 100 UNIT/ML CARTRIDGE SQ SCH (21:48)
[2016-07-11] MEDS: QUETIAPINE FUMARATE 100 MG TABLET PO SCH (21:48)
--- NOTE | 2016-07-12 01:19 | NUR ---
Pt has been very easily irritable; he complied with his noc po meds but refused accucheck/Insulin.
[2016-07-12] MEDS: BACLOFEN (10 MG) 10 MG TABLET PO PRN (04:25)
--- NOTE | 2016-07-12 04:25 | NUR ---
GPS RN NOTE, PATIENT HAS A COMPLAINT OF HAVING MUSCLE SPASMS AND WOULD LIKE MEDICATION AT THIS TIME. PATIENT VITAL SIGNS ARE STABLE. GAVE BACLOFEN 10MG PO BID ORDERED. WILL CONTINUE TO MONITOR THIS PATIENT.
[2016-07-12] MEDS: LORAZEPAM 0.5 MG TABLET PO PRN (05:05)
--- NOTE | 2016-07-12 05:05 | NUR ---
GPS RN NOTE, PATIENT HAS A COMPLAINT OF FEELING ANXIOUS AND WOULD LIKE MEDICATION AT THIS TIME. PATIENT VITAL SIGNS ARE STABLE. GAVE ATIVAN 0.5MG PO Q6HR PRN ORDERED. WILL REASSESS OF ANXIETY AND I WILL CONTINUE TO MONITOR THIS PATIENT.
[2016-07-12] MEDS: ALBUTEROL FS 2.5 MG/3 ML VIAL.NEB NEB SCH ×3 (07:35→23:09)
[2016-07-12] MEDS: BLOOD SUGAR DIAGNOSTIC 1 EACH STRIP IN SCH ×4 (07:52→21:55)
[2016-07-12] MEDS: PANTOPRAZOLE 40 MG TABLET.DR PO SCH (07:53)
[2016-07-12 08:00] VITALS: BP 104/69
[2016-07-12] MEDS: MULTIVIT, IRON, MIN NO. 8, FA 1 TAB TABLET PO SCH (08:00)
[2016-07-12] MEDS: GABAPENTIN 300 MG CAPSULE PO SCH (08:00)
[2016-07-12] MEDS: MULTIVITAMINS,THERAPEUTIC 1 UDTAB TABLET PO SCH (08:00)
[2016-07-12] MEDS: DIVALPROEX SODIUM 250 MG TABLET.DR PO SCH ×3 (08:01→21:00)
[2016-07-12] MEDS: TRAMADOL HCL 50 MG TABLET PO SCH (08:01)
[2016-07-12] MEDS: DOCUSATE SODIUM 100 MG CAPSULE PO SCH (08:01)
[2016-07-12] MEDS: MAGNESIUM OXIDE 400 MG TABLET PO SCH ×2 (08:02→16:19)
[2016-07-12] MEDS: QUETIAPINE FUMARATE 25 MG TABLET PO SCH ×2 (08:02→16:19)
[2016-07-12] MEDS: CARVEDILOL 3.125 MG TABLET PO SCH ×2 (08:02→16:19)
[2016-07-12] MEDS: POLYVINYL ALCOHOL 15 ML BOTTLE EACHEYE SCH ×2 (08:05→16:24)
[2016-07-12] MEDS: INSULIN REGULAR, HUMAN 100 UNIT/ML 3 ML VIAL SQ PRN ×4 (08:23→22:03)
--- NOTE | 2016-07-12 08:23 | NUR ---
[id number]: BLOOD SUGAR IS 211 MG/DL AND GAVE 4 UNITS OF REGULAR INSULIN.
[2016-07-12 09:24] LABS: BASOPHILS # (AUTO) 0.1 /CMM (0.0-0.2); BASOPHILS % (AUTO) 0.5 % (0.0-2.0); EOSINOPHILS # (AUTO) 0.6 /CMM (0.0-0.7); EOSINOPHILS % (AUTO) 3.3 % (0.0-6.0); HEMATOCRIT 49 % (39-51); HEMOGLOBIN 16.2 g/dL (13.5-17.5); LYMPHOCYTES # (AUTO) 1.9 /CMM (0.8-4.8); MEAN CORPUSCULAR HEMOGLOBIN 30 PG (26.0-33.0); MEAN CORPUSCULAR HGB CONC 33 g/dl (31.0-36.0); MEAN CORPUSCULAR VOLUME 89 fL (80-96); MONOCYTES # (AUTO) 1.1 /CMM (0.1-1.30); MONOCYTES % (AUTO) 6.5 % (2.0-12.0); NEUTROPHILS # (AUTO) 13.7 /CMM (1.8-8.9); NEUTROPHILS % (AUTO) 78.7 % (43.0-81.0); PLATELET COUNT (AUTO) 116 /CMM (150-450); RDW COEFFICIENT OF VARIATION 13.6 (11.5-15.0); RED BLOOD CELL COUNT(AUTO) 5.47 MIL/uL (4.5-6.0); WHITE BLOOD COUNT (AUTO) 17.4 K/uL (4.3-11.0)
--- NOTE | 2016-07-12 11:00 | NUR ---
[id number]: NOTIFIED DR. GUTIERRES ABOUT LAB RESULTS FOR TODAY: WBC= 17.4, PLT PJIFP=402, LYMPH %= 11.0, NEUT #= 13.7. NO NEW ORDER GIVEN AT THIS TIME.
--- NOTE | 2016-07-12 12:17 | NUR ---
[id number]: BLOOD SUGAR IS 348 MG/DL AND GAVE 8 UNITS OF REGULAR INSULIN.
[2016-07-12 15:36] LABS: CALCIUM, SERUM 9.2 mg/dL (8.5-10.1); CREATININE 1.4 mg/dL (0.6-1.3); MAGNESIUM 2.8 mg/dL (1.8-2.4); PHOSPHORUS 2.9 mg/dL (2.5-4.9)
--- NOTE | 2016-07-12 16:01 | NUR ---
QOM-CG-CESLG: NOTIFIED DR. GUTIERRES ABOUT LAB RESULT FOR TODAY: WBC= 17.4, PLT COUNT= 116, LYMPH%= 11.0, NEUT#= 13.7, BUN= 28, CREATININE= 1.4, MAGNESIUM= 2.8. NO NEW ORDER AT THIS TIME
--- NOTE | 2016-07-12 16:36 | NUR ---
[id number]: BLOOD SUGAR IS 176 MG/DL AND GAVE 3 UNITS OF REGULAR INSULIN
[2016-07-12 16:49] VITALS: BP 118/59
[2016-07-12 18:00] VITALS: BP 91/58
--- NOTE | 2016-07-12 18:00 | NUR ---
[id number]: NOTIFIED DR. GUTIERRES ABOUT LAB RESULTS ABOUT WBC= 17.4. PENDING RETURN PHONE
[2016-07-12 18:32] VITALS: BP 93/71
--- NOTE | 2016-07-12 18:33 | NUR ---
XPT-UF-XWMKM: NOTIFIED DR. GUTIERRES ABOUT WBC= 17.4, PLT COUNT= 116. DR. GUTIERRES ORDERED RECHECK BLOOD PRESSURE IN 30 MINUTES IF LESS THAN 100 ON SYSTOLIC GIVE 500 CC OF BOLUS OF NORMAL SALINE.
[2016-07-12 18:55] VITALS: BP 103/61
[2016-07-12 20:00] VITALS: BP 121/76
[2016-07-12] MEDS: INSULIN DETEMIR 100 UNIT/ML CARTRIDGE SQ SCH (21:56)
[2016-07-12] MEDS: ATORVASTATIN 10 MG TABLET PO SCH (22:00)
[2016-07-12] MEDS: QUETIAPINE FUMARATE 100 MG TABLET PO SCH (22:00)
--- NOTE | 2016-07-12 22:00 | NUR ---
GPS RN NOTES: PATIENT WAS ASLEEP, DIFFICULT TO AWAKEN COMPLETELY IN ORDER TO TAKE PO MEDICATIONS. UNABLE TO GIVE DEPAKOTE 250 MG TAB, LIPITOR 10 MG TABLET AND SEROQUEL 50 MG (1/2 TAB). PATIENT DID ALLOW FOR ACCUCHECK TO BE DONE. BS: 164 MG/DL. ADMINISTERED SCHEDULED 22 UNITS LEVEMIR AND 3 UNITS REGULAR INSULIN PER SCALE. PATIENT ABLE TO TAKE SIPS OF JUICE, AND WENT BACK TO SLEEP. WILL CONT TO MONITOR.
[2016-07-13] MEDS: BLOOD SUGAR DIAGNOSTIC 1 EACH STRIP IN SCH ×4 (07:44→21:26)
[2016-07-13] MEDS: ALBUTEROL FS 2.5 MG/3 ML VIAL.NEB NEB SCH ×3 (08:10→23:30)
[2016-07-13] MEDS: DOCUSATE SODIUM 100 MG CAPSULE PO SCH (08:39)
[2016-07-13] MEDS: MULTIVIT, IRON, MIN NO. 8, FA 1 TAB TABLET PO SCH (08:39)
[2016-07-13] MEDS: GABAPENTIN 300 MG CAPSULE PO SCH (08:39)
[2016-07-13] MEDS: MULTIVITAMINS,THERAPEUTIC 1 UDTAB TABLET PO SCH (08:39)
[2016-07-13] MEDS: QUETIAPINE FUMARATE 25 MG TABLET PO SCH ×2 (08:39→17:21)
[2016-07-13] MEDS: MAGNESIUM OXIDE 400 MG TABLET PO SCH ×2 (08:40→17:21)
[2016-07-13] MEDS: POLYVINYL ALCOHOL 15 ML BOTTLE EACHEYE SCH ×2 (08:40→17:19)
[2016-07-13] MEDS: PANTOPRAZOLE 40 MG TABLET.DR PO SCH (08:40)
[2016-07-13] MEDS: DIVALPROEX SODIUM 250 MG TABLET.DR PO SCH ×3 (08:40→21:26)
[2016-07-13] MEDS: TRAMADOL HCL 50 MG TABLET PO SCH (08:40)
[2016-07-13] MEDS: CARVEDILOL 3.125 MG TABLET PO SCH ×2 (08:44→17:00)
[2016-07-13 08:51] VITALS: BP 109/65
[2016-07-13 12:50] LABS: VIT D, 25-HYDROXY 26.1 ng/mL (30.0-100.0)
[2016-07-13] MEDS: INSULIN REGULAR, HUMAN 100 UNIT/ML 3 ML VIAL SQ PRN ×3 (13:09→21:51)
[2016-07-13 16:00] VITALS: BP 101/62
--- NOTE | 2016-07-13 18:13 | NUR ---
PT IN THE BED A/O X1/2, CONFUSED, BS-209 MG/DL, OFFERED X3 BUT STILL REFUSED COVERAGE . MD AWARE OF. CONTINUED MONITORING
[2016-07-13 20:35] VITALS: BP 150/84
[2016-07-13] MEDS: QUETIAPINE FUMARATE 100 MG TABLET PO SCH (21:26)
[2016-07-13] MEDS: ATORVASTATIN 10 MG TABLET PO SCH (21:26)
[2016-07-13] MEDS: INSULIN DETEMIR 100 UNIT/ML CARTRIDGE SQ SCH (21:50)
[2016-07-14] MEDS: BLOOD SUGAR DIAGNOSTIC 1 EACH STRIP IN SCH ×4 (07:30→21:50)
[2016-07-14] MEDS: ALBUTEROL FS 2.5 MG/3 ML VIAL.NEB NEB SCH ×3 (07:35→23:30)
[2016-07-14 08:00] VITALS: BP 139/78
--- NOTE | 2016-07-14 08:02 | NUR ---
[id number]: PT REFUSED MORNING ACCUCHECK.
[2016-07-14] MEDS: DOCUSATE SODIUM 100 MG CAPSULE PO SCH (08:03)
[2016-07-14] MEDS: MULTIVITAMINS,THERAPEUTIC 1 UDTAB TABLET PO SCH (08:04)
[2016-07-14] MEDS: PANTOPRAZOLE 40 MG TABLET.DR PO SCH (08:04)
[2016-07-14] MEDS: GABAPENTIN 300 MG CAPSULE PO SCH (08:04)
[2016-07-14] MEDS: MAGNESIUM OXIDE 400 MG TABLET PO SCH ×2 (08:05→17:13)
[2016-07-14] MEDS: CARVEDILOL 3.125 MG TABLET PO SCH ×2 (08:05→17:13)
[2016-07-14] MEDS: DIVALPROEX SODIUM 250 MG TABLET.DR PO SCH ×3 (08:05→21:06)
[2016-07-14] MEDS: MULTIVIT, IRON, MIN NO. 8, FA 1 TAB TABLET PO SCH (08:06)
[2016-07-14] MEDS: QUETIAPINE FUMARATE 25 MG TABLET PO SCH ×2 (08:06→17:12)
[2016-07-14] MEDS: TRAMADOL HCL 50 MG TABLET PO SCH (08:07)
--- NOTE | 2016-07-14 08:46 | NUR ---
[id number]: NOTIFIED DR. SINCLAIR ABOUT PHYSICIAN CONSULT REFERRED BY DR. HALE. DR. SINCLAIR WILL COME SEE PT.
[2016-07-14] MEDS: POLYVINYL ALCOHOL 15 ML BOTTLE EACHEYE SCH ×2 (09:24→17:12)
[2016-07-14 11:13] LABS: CALCITRIOL VIT D,1, 25 DIHYDRO 29.2 pg/mL (19.9-79.3)
--- NOTE | 2016-07-14 11:30 | NUR ---
ZCF-ZT-[id number]: BLOOD SUGAR IS 145 MG/DL AND GAVE 2 UNITS OF REGULAR INSULIN
[2016-07-14] MEDS: INSULIN REGULAR, HUMAN 100 UNIT/ML 3 ML VIAL SQ PRN ×2 (12:09→22:24)
--- NOTE | 2016-07-14 12:18 | NUR ---
VOK-LG-[id number]: NOTIFIED DR. SINCLAIR ABOUT ABDOMINAL ULTRASOUND AND NEW ORDERS AT THIS TIME. DR. SINCLAIR IS ABLE TO GO TO [facility]. ALSO NOTIFIED DR. HALE ABOUT ABDOMINAL ULTRASOUND RESULT AND PT CAN BE DISCHARGE.
[2016-07-14] MEDS ORDERED: IV NS 0.9% 1,000 ML IV ONE (15:30)
[2016-07-14] MEDS ORDERED: IV NS 0.9% 1,000 ML BAG IV PRN (15:30)
[2016-07-14 16:00] VITALS: BP 135/81
[2016-07-14] MEDS ORDERED: IV SET PRIMARY PUMP SET 1 EA INFUS.SET MC ONE (16:00)
[2016-07-14] MEDS: ATORVASTATIN 10 MG TABLET PO SCH (21:05)
[2016-07-14] MEDS: QUETIAPINE FUMARATE 100 MG TABLET PO SCH (21:06)
[2016-07-14] MEDS: INSULIN DETEMIR 100 UNIT/ML CARTRIDGE SQ SCH (22:22)
[2016-07-14 22:37] VITALS: BP 99/74
[2016-07-14] MEDS: TEMAZEPAM 7.5 MG CAPSULE PO PRN (22:44)
--- NOTE | 2016-07-15 08:00 | NUR ---
GPS/RN BS 145, 2 UNITS ADMINISTERED, WILL CONTINUE TO MONITOR.
[2016-07-15] MEDS: GABAPENTIN 300 MG CAPSULE PO SCH (08:28)
[2016-07-15] MEDS: QUETIAPINE FUMARATE 25 MG TABLET PO SCH ×2 (08:29→16:25)
[2016-07-15] MEDS: MULTIVITAMINS,THERAPEUTIC 1 UDTAB TABLET PO SCH (08:29)
[2016-07-15] MEDS: DOCUSATE SODIUM 100 MG CAPSULE PO SCH (08:29)
[2016-07-15] MEDS: DIVALPROEX SODIUM 250 MG TABLET.DR PO SCH ×2 (08:29→16:25)
[2016-07-15] MEDS: MAGNESIUM OXIDE 400 MG TABLET PO SCH ×2 (08:29→16:26)
[2016-07-15] MEDS: PANTOPRAZOLE 40 MG TABLET.DR PO SCH (08:29)
[2016-07-15] MEDS: MULTIVIT, IRON, MIN NO. 8, FA 1 TAB TABLET PO SCH (08:30)
[2016-07-15] MEDS: TRAMADOL HCL 50 MG TABLET PO SCH (08:30)
[2016-07-15] MEDS: CARVEDILOL 3.125 MG TABLET PO SCH ×2 (08:31→16:26)
[2016-07-15] MEDS: POLYVINYL ALCOHOL 15 ML BOTTLE EACHEYE SCH ×2 (08:31→16:27)
[2016-07-15] MEDS: INSULIN REGULAR, HUMAN 100 UNIT/ML 3 ML VIAL SQ PRN ×3 (08:37→17:45)
[2016-07-15] MEDS: BLOOD SUGAR DIAGNOSTIC 1 EACH STRIP IN SCH ×3 (08:41→17:31)
[2016-07-15 08:42] VITALS: BP 142/94
[2016-07-15] MEDS: ALBUTEROL FS 2.5 MG/3 ML VIAL.NEB NEB SCH ×2 (10:05→15:03)
--- NOTE | 2016-07-15 10:09 | NUR ---
PT. WITH AN ORDER TO D/C HOLD AND D/C TO [facility]. PT. WITHOUT DISTRESS, DENIES SUICIDAL AND HOMICIDAL. TO FOLLOW UP WITH PSYCH AND MEDICAL DOCTORS.
--- NOTE | 2016-07-15 12:30 | NUR ---
GPS/RN BS 235, 4 UNITS ADMINISTERED, WILL CONTINUE TO MONITOR.
[2016-07-15 16:00] VITALS: BP 121/72
[2016-07-15 16:46] VITALS: BP 121/72
--- NOTE | 2016-07-15 18:08 | NUR ---
GPS/RN PATIENT CLEARED FOR DISCHARGE TO [facility] BY DR MARTINEZ AND DR HALE. DISCHARGE PAPER WORK SIGNED BY 2 RN, PATIENT UNABLE TO SIGN DUE TO CONDITION. PATIENT HAS NO BELONGINGS, MEDICATIONS RECONCILED, D/C PHOTOS TAKEN 07/14, REPORT CALLED TO SARINA AT FACILITY, PATIENT DENIES SI/HI/AH UPON DISCHARGE, PSYCHIATRIC TREATMENT PLANS MET, LEFT UNIT CALM, COOPERATIVE, WITH EMT AT SIDE.
== END 2016-07-15 18:05 | DRG 885 ==
LOC: ER 11:56 → GPS 07-02 01:32
PROVIDERS: ADMIT Psychiatry & Neurology Psychiatry; ATTEND Nurse Practitioner Acute Care
DX: F23 Brief psychotic disorder (principal); N18.9 Chronic kidney disease, unspecified; E11.65 Type 2 diabetes mellitus with hyperglycemia; R53.2 Functional quadriplegia; E87.1 Hypo-osmolality and hyponatremia; I69.354 Hemiplegia and hemiparesis following cerebral infarction affecting left non-dominant side; F03.91 Unspecified dementia, unspecified severity, with behavioral disturbance; E44.0 Moderate protein-calorie malnutrition; F41.9 Anxiety disorder, unspecified; Z99.3 Dependence on wheelchair; I69.398 Other sequelae of cerebral infarction; G93.89 Other specified disorders of brain; E11.22 Type 2 diabetes mellitus with diabetic chronic kidney disease; I12.9 Hypertensive chronic kidney disease with stage 1 through stage 4 chronic kidney disease, or unspecified chronic kidney disease; Z79.4 Long term (current) use of insulin; E87.5 Hyperkalemia; D69.6 Thrombocytopenia, unspecified; Z68.21 Body mass index [BMI] 21.0-21.9, adult; J44.9 Chronic obstructive pulmonary disease, unspecified; E86.0 Dehydration; D72.829 Elevated white blood cell count, unspecified; M48.02 Spinal stenosis, cervical region; M25.78 Osteophyte, vertebrae; Z53.20 Procedure and treatment not carried out because of patient's decision for unspecified reasons; I70.0 Atherosclerosis of aorta; Z91.81 History of falling
CPT/HCPCS: 36415; 70450-TC; 71010-TC; 72125-TC; 76700-TC; 80048-TC; 80053-TC; 81000-TC; 82306; 82550-TC; 82652; 82962-TC; 83735-TC; 83970; 84100-TC; 84155; 84165; 84443-TC; 84484-TC; 85025-TC; 85610-TC; 85730-TC; 87040-TC; 87081-TC; 97001-TC; 97116-TC; 97530-TC; A4606; A6402; J1644; J1815; J7030; Z7610

== ENCOUNTER 2016-08-13 01:55 | Inpatient (IN) | payer MEDICARE, OTHER ==
[~2016-08-13] VITALS: Ht 170.2 cm; Wt 68.0 kg
[2016-08-13] VITALS (8 sets, daily range): BP systolic 105–147; BP diastolic 68–93
[~2016-08-13 01:55] MED LIST: ACET-2605 PO; ACET-868 PO; ACET325T53 PO; ALBU8.5H2 IH; ALBU8.5H2 INH; AMIN30LI4 PO; ATOR10TA PO; ATOR80TA PO; BACL10TA PO; CARV3.122 PO; CLON0.5T4 PO; CRAN400T4 PO; DOCU-25 PO; DOCU-270 PO; FURO-144 PO; FURO40TA5 PO; GABA-534 PO; INSU300I SQ; LISI2.5T2 PO; MAGN400T26 PO; MELA5TAB PO; MULT-659 PO; MULT1TAB73 PO; OMEP20CA10 PO; OMEP20TA68 PO; POLY15DR17 EACHEYE; TRAM50TA2 PO
--- NOTE | 2016-08-13 02:00 | NUR ---
to bed 2 sent by pmd for pneumonia and abnormal labs. pt confused, no acute distress noted, resp even and unlabored. place pt on cardiac monitoring, continuous pox. er md at bedside to eval pt with orders received. will carry out orders.
--- NOTE | 2016-08-13 02:15 | NUR ---
started sl 18g to R hand, blood cultures drawn and sent to lab.
[2016-08-13] MEDS ORDERED: IV NS 0.9% 100 ML IV ONE (02:25)
[2016-08-13] MEDS ORDERED: IV SET PRIMARY PUMP SET 1 EA INFUS.SET MC ONE (02:25)
[2016-08-13] MEDS ORDERED: AZTREONAM 1 G VIAL ONE (02:25)
[2016-08-13] MEDS ORDERED: LEVOFLOXACIN 750 MG /D5W 150ML 150 ML IV ONE (02:25)
[2016-08-13] MEDS ORDERED: LEVOFLOXACIN 750 MG /D5W 150ML PIGGYBACK IV ONE (02:30)
[2016-08-13] MEDS ORDERED: AZTREONAM 1 G in IV NS 0.9% 100 ML IV ONE (02:30)
--- NOTE | 2016-08-13 02:42 | NUR ---
report called to telephone lines repairerhasmukh becerril. [facility]
[2016-08-13 03:02] LABS: ALBUMIN 2.7 g/dL (3.4-5.0); BILIRUBIN,TOTAL 0.6 mg/dL (0.2-1.0); CALCIUM, SERUM 9.1 mg/dL (8.5-10.1); POTASSIUM 4.5 mmol/L (3.5-5.1); TOTAL PROTEIN, SERUM 7.3 g/dL (6.4-8.2)
[2016-08-13 03:04] LABS: TROPONIN I 0.039 ng/mL (0.00-0.056)
[2016-08-13] MEDS ORDERED: IV SET PRIMARY 1 EA INFUS.SET MC ONE (03:07)
[2016-08-13] MEDS ORDERED: IV NS 0.9% 2,000 ML ONE (03:07)
[2016-08-13] MEDS ORDERED: HYDROCODONE/APAP 5/325MG 1 EACH TABLET PO PRN (03:30)
[2016-08-13] MEDS ORDERED: IV NS 0.9% 1,000 ML BAG IV ONE ×2 (03:30)
[2016-08-13] MEDS ORDERED: BACLOFEN (10 MG) 10 MG TABLET PO PRN (03:30)
[2016-08-13] MEDS ORDERED: ACETAMINOPHEN 325 MG TABLET PO SCH (03:30)
[2016-08-13] MEDS ORDERED: MAGNESIUM HYDROXIDE 30 ML UDC PO PRN (03:30)
[2016-08-13] MEDS ORDERED: ONDANSETRON HCL/PF 4 MG/2 ML VIAL IVP PRN (03:30)
[2016-08-13] MEDS ORDERED: LEVOFLOXACIN 500 MG /D5W 100ML 500 MG in PREMIX 1 EA IV SCH (03:30)
[2016-08-13] MEDS ORDERED: MAG HYDROX/AL HYDROX/SIMETH 30 ML UDC PO PRN (03:30)
[2016-08-13] MEDS ORDERED: Z GUARD REMEDY 2 OZ OINT TP PRN (03:30)
[2016-08-13] MEDS ORDERED: ACETAMINOPHEN 325 MG TABLET PO PRN (03:30)
--- NOTE | 2016-08-13 04:00 | NUR ---
ADMISSION NOTES RECEIVED PT FROM ER VIA HOSPITAL BED. PT IN STABLE CONDITION. PT IS A&OX2. CONFUSED. NO SOB. RESPIRATION EVEN AND UNLABORED. PATIENT IN NO APPARENT DISTRESS, NO COMPLAIN OF PAIN/DISCOMFORT AT THIS TIME. IV ON RIGHT HAND #18 PATENT AND INTACT. FLUSHING WELL. PATIENT ASSSISTED WITH TURNING AND REPOSITIONING Q2HRS. PATIENT EDUCATED ON THE USE OF THE CALL LIGHT. BED IN LOW AND LOCKED POSITION. SIDERAILS UPX2. ALL NEEDS ATTENDED AND ANTICIPATED. WILL CONTINUE TO MONITOR FOR SAFETY.
--- NOTE | 2016-08-13 04:06 | NUR ---
levofloxacin 750mg given in er, next dose will be given 08/14 @0330. will continue to monitor.
[2016-08-13] MEDS ORDERED: AZTREONAM 1 G in IV NS 0.9% 100 ML IV SCH (05:00)
--- NOTE | 2016-08-13 05:32 | NUR ---
azactam 1g given in er at 0329. will continue to monitor.
[2016-08-13 06:20] LABS: BILIRUBIN,DIRECT 0.1 mg/dL (0.0-0.2)
[2016-08-13 08:50] LABS: BASOPHILS # (AUTO) 0.2 /CMM (0.0-0.2); BASOPHILS % (AUTO) 0.9 % (0.0-2.0); HEMATOCRIT 39 % (39-51); HEMOGLOBIN 13.2 g/dL (13.5-17.5); LYMPHOCYTES # (AUTO) 1.2 /CMM (0.8-4.8); LYMPHOCYTES % (AUTO) 5.3 % (20.0-44.0); MEAN CORPUSCULAR HEMOGLOBIN 31 PG (26.0-33.0); MEAN CORPUSCULAR HGB CONC 34 g/dl (31.0-36.0); MEAN CORPUSCULAR VOLUME 91 fL (80-96); MONOCYTES # (AUTO) 1.1 /CMM (0.1-1.30); MONOCYTES % (AUTO) 4.8 % (2.0-12.0); NEUTROPHILS # (AUTO) 19.7 /CMM (1.8-8.9); PLATELET COUNT (AUTO) 134 /CMM (150-450); RDW COEFFICIENT OF VARIATION 16.1 (11.5-15.0); WHITE BLOOD COUNT (AUTO) 22.2 K/uL (4.3-11.0)
[2016-08-13] MEDS ORDERED: POLYVINYL ALCOHOL 15 ML BOTTLE EACHEYE PRN (09:00)
[2016-08-13] MEDS ORDERED: Medication Not On Formulary EA (Omeprazole 1 TAB) PO SCH (09:00)
[2016-08-13] MEDS ORDERED: GABAPENTIN 300 MG CAPSULE PO SCH (09:00)
[2016-08-13] MEDS ORDERED: CARVEDILOL 3.125 MG TABLET PO SCH (09:00)
[2016-08-13] MEDS ORDERED: DOCUSATE SODIUM 100 MG CAPSULE PO SCH (09:00)
[2016-08-13] MEDS ORDERED: MAGNESIUM OXIDE 400 MG TABLET PO SCH (09:00)
[2016-08-13] MEDS ORDERED: [UNRECOGNIZED DRUG - OTHER] PO SCH (09:00)
[2016-08-13] MEDS ORDERED: ALBUTEROL SULFATE 8 GM HFA.AER.AD IH SCH (09:00)
[2016-08-13] MEDS ORDERED: FUROSEMIDE 40 MG TABLET PO SCH ×2 (09:00)
[2016-08-13] MEDS ORDERED: CRANBERRY FRUIT PO SCH (09:00)
[2016-08-13] MEDS ORDERED: IV NS 0.9% 1,000 ML IV PRN ×2 (09:00→11:30)
[2016-08-13] MEDS ORDERED: ACETAMINOPHEN ES 500 MG TABLET PO PRN (09:00)
[2016-08-13] MEDS ORDERED: CALCIUM PO SCH (09:00)
[2016-08-13] MEDS ORDERED: clonazePAM 0.5 MG TABLET PO SCH (09:00)
[2016-08-13 09:19] LABS: BAND % (MANUAL) 31 % (0.0-5.0); LYMPHOCYTES % (MANUAL) 12 % (16-48); MONOCYTES % (MANUAL) 5 % (0-11.0); NEUTROPHILS % (MANUAL) 52 (42-76)
[2016-08-13] MEDS: GABAPENTIN 300 MG CAPSULE PO SCH (09:53)
[2016-08-13] MEDS: MULTIVITAMINS,THERAPEUTIC 1 UDTAB TABLET PO SCH (09:53)
[2016-08-13] MEDS: DOCUSATE SODIUM 100 MG CAPSULE PO SCH (09:53)
[2016-08-13] MEDS: clonazePAM 0.5 MG TABLET PO SCH ×3 (09:53→17:58)
[2016-08-13] MEDS: MAGNESIUM OXIDE 400 MG TABLET PO SCH ×2 (09:55→17:58)
[2016-08-13] MEDS: CARVEDILOL 3.125 MG TABLET PO SCH ×2 (09:55→18:01)
[2016-08-13] MEDS: TRAMADOL HCL 50 MG TABLET PO SCH (09:55)
[2016-08-13] MEDS: LISINOPRIL (5MG) 5 MG TABLET PO SCH (09:56)
[2016-08-13] MEDS: Z GUARD REMEDY 2 OZ OINT TP SCH (09:56)
[2016-08-13] MEDS: PROSOURCE / PROSTAT (PYXIS) 30 ML UDC PO SCH (09:56)
--- NOTE | 2016-08-13 09:59 | NUR ---
RN NOTES MD SEEN AND EVALUATED PT. ALL BLOOD WORKS RESULTS REVIEWED WITH ORDER TO DO BMP, CBC, MG AND PHOSPHOROUS LEVEL TOMORROW,08/14/2016. WILL CONTINUE TO MONITOR
--- NOTE | 2016-08-13 10:18 | NUR ---
WOUND CARE CONSULT: PT PRESENTS CURSING AND KICKING HIS LEGS STRONGLY. MULTIPLE DRY ABRASIONS NOTED WELL RT UPPER LEG AND LEFT LOWER LEG ABRASION AND SKIN TEAR. LEFT ARM NOTED TO BE WEAK. PT IS INCONTINENT. RECOMMENDATIONS MADE FOR SKIN CARE AND PROTECTION. DISCUSSED WITH NURSING STAFF. PT ON DASH ISOFLEX LOW AIRLOSS BED. ALL SKIN PROTECTION MEASURES IN PLACE. MD IN AGREEMENT WITH PLAN OF CARE. Addendum: 08/13/16 at 1021 by GHADA JACK WNDNU Amended: Links added.
[2016-08-13] MEDS: AZTREONAM 1 G in IV NS 0.9% 100 ML IV SCH ×2 (11:26→18:13)
--- NOTE | 2016-08-13 12:25 | NUR ---
TELE-RN NOTES RECEIVED PT AWAKE IN BED IN NO ACUTE SIGNS OF DISTRESS. ALERT AND ORIENTED X 2, NO SIGNS OF PAIN OR DISCOMFORTS AT THIS TIME. ON ROOM AIR, NO SOB NOTED. ON TELE -MONITORING WITH CURRENT READING OF SR AND HR OF 84. IV ON RIGHT HAND G#18 PATENT AND INTACT. CALL LIGHT WITHIN REACH. BED IN LOW AND LOCKED POSITION. SIDE-RAILS UPX2. ALL SAFETY PRECAUTIONS MAINTAINED. WILL CONTINUE TO MONITOR ACCORDINGLY.
[2016-08-13] MEDS ORDERED: ALBUTEROL FS 2.5 MG/3 ML VIAL.NEB NEB PRN (13:30)
[2016-08-13] MEDS ORDERED: Medication Not On Formulary EA (Multivits,Th W-Fe,Other Min (Thera-M) 1 EACH) PO SCH (18:00)
--- NOTE | 2016-08-13 18:04 | NUR ---
RN NOTES PATIENT IS DIABETIC, MD MADE AWARE WITH ORDER TO CHECK BLOOD SUGAR ACHS WITH MILD SLIDING SCALE COVERAGE.
--- NOTE | 2016-08-13 19:01 | NUR ---
RN NOTES PT CHEST X-RAY RESULTS IN, MADE AWARE OF RESULTS.
--- NOTE | 2016-08-13 19:02 | NUR ---
TELE-RN CLOSING NOTES RECEIVED RESTING IN BED WITH 1:1 SITTER. ALERT AND ORIENTED X 2, CONFUSED ON AND OFF DURING THE DAY. ALL NEEDS AND CARE PROVIDED WELL. ON ROOM AIR, NO SOB NOTED. ON TELE -MONITORING WITH CURRENT READING OF SR AND HR OF 84. IV ON RIGHT HAND G#18 PATENT AND INTACT WITH IVF OF NS @ 75ML/HR INFUSING WELL, NO SIGNS OF INFILTRATION OR PHLEBITIS AT SITE NOTED. ALL DUE MEDS GIVEN AND TOLERATED. CALL LIGHT WITHIN REACH. BED IN LOW AND LOCKED POSITION. SIDE-RAILS UPX2. ALL SAFETY PRECAUTIONS MAINTAINED. ENDORSED TO SCIENTIFIC AFFAIRS MANAGER FOR NATALIE.
--- NOTE | 2016-08-13 19:30 | NUR ---
TEXTILE CONSERVATOR INITIAL NOTES: RECEIVED REPORT FROM BARI CASH, PT IN BED, AWAKE, A/O X1, GARBLED SPEAKING, ON 2L VIA NC, RESPIRATION EVEN AND UNLABORED, NO FACIAL GRIMACE NOTED, SITTER AT BED SIDE PT TRYING TO GET OUT OF BED DESPITE GIVING MEDICATION TO CLAM HIM DOWN AND MAKE HIM RELAX. RIGHT HAND G18 PATENT AND FLUSHING WELL, INFUSING WITH NS AT 75ML/HR, NO REDNESS INFILTRATION NOTED AT THE IV SITE, PT ON SINUS RHYTHM HR 92. BLE OFFLOADED. SAFETY PRECAUTIONS FOR FALL INITIATED CALL LIGHT IN REACH WILL CONTINUE TO MONITOR.
--- NOTE | 2016-08-13 20:27 | NUR ---
CCIE: NOTED PT'S HEAR RATE TO BE ELEVATED, SINUS TACHY ON TELE MONITOR HR 146, PT AWAKE, ON 2L VIA NC RECHECK VS AND REVEAL 133/80 HR 126 RR 20 TEMP 98.2, RELAYED TO CAR FERRIERJOSE LUIS DELGADILLO, TO DO STAT EKG AND WHATEVER THE RESULT THEN CALL EPIC STAMPING DIE MAKER BENCH
--- NOTE | 2016-08-13 20:53 | NUR ---
CALLED FROM [facility]: RECEIVED CALL FROM DR DUNHAM RELAYED ABOUT PT'S HR 146, EKG SHOWS SINUS TACHY 148, PER WEB ART DIRECTOR PT HIGHEST HR IS 152, PT VERY CONFUSED, DR DUNHAM ASKED IF PT ON ANY IV ANTIBIOTIC AND FLUID, ALSO INFORMED PT HAS HX OF CHF AND NOW WHEEZING, PER TO STOP THE IV FLUID, AND CONTINUE MONITORING THE HR, ALSO ASKED IF WOULD LIKE TO GIVE PRN ATIVAN, PER MD HE DOESNT WANT TO GIVE ATIVAN TO THE PT BECAUSE HE'S ALREADY CONFUSED AND DOES NOT WANT TO KNOW OUT THE PT AND LATER ON UNABLE TO WAKE THE PT, RELAYED EVERYTHING TO SHREYA DELGADILLO.
[2016-08-13] MEDS: BLOOD SUGAR DIAGNOSTIC 1 EACH STRIP IN SCH (21:14)
--- NOTE | 2016-08-13 21:18 | NUR ---
npo order: relayed to dr cameron regarding pt coughing after giving food by mouth, aspiration risk, informed md about pt's medication scheduled for tonight, per md to kept pt npo, and do swallow eval in am
[2016-08-13] MEDS: INSULIN REGULAR, HUMAN 100 UNIT/ML 3 ML VIAL SQ PRN (21:20)
[2016-08-13] MEDS: ATORVASTATIN 10 MG TABLET PO SCH (21:20)
--- NOTE | 2016-08-13 21:21 | NUR ---
accu check: blood sugar checked and reveal 162, no insulin coverage given at this time, as pt was npo, will continue to monitor for any s/s of hypoglycemia
--- NOTE | 2016-08-13 21:30 | NUR ---
CALLED EPIC: TALKED TO DR DUNHAM REGARDING RESULT OF EKG, CLARIFIED RESULT, IT WAS SUPRAVENTRICULAR TACHYCARDIA IN EKG AND WHEREAS IN TELE MONITORING IT SHOWING SINUS TACHY BOTH HR RANGING 140-150'S PT AGITATED, CONFUSED, VS TAKEN AND RECORDED, STABLE ASIDE FROM HR THAT IS ELEVATED, PER MD CONTINUE MONITORING THE PT, RELAYED TO MEDICAL PHOTOGRAPHER DELGADILLO
[2016-08-13] MEDS ORDERED: Medication Not On Formulary EA (Atorvastatin Calcium (Lipitor) 1 TAB) PO SCH (22:00)
[2016-08-13] MEDS ORDERED: Medication Not On Formulary EA (Melatonin 1 TAB) PO SCH (22:00)
[2016-08-13] MEDS ORDERED: [UNRECOGNIZED DRUG - OTHER] SQ SCH (22:00)
[2016-08-13] MEDS ORDERED: ZOLPIDEM TARTRATE 5 MG TABLET PO PRN (22:00)
[2016-08-13] MEDS ORDERED: INSULIN GLARGINE HUM REC ANLOG 22 UNIT SQ SCH (22:00)
[2016-08-13] MEDS ORDERED: Medication Not On Formulary EA (Melatonin 5 MG) PO SCH (22:00)
--- NOTE | 2016-08-13 22:14 | NUR ---
reassessment: went to check on the pt, pt currently sleeping, vs taken and recorded, please see vs short form for the values, currently sinus rhythm hr 92, temp 97.5, will continue to monitor
[2016-08-14] VITALS (7 sets, daily range): BP systolic 104–163; BP diastolic 69–96
[2016-08-14] MEDS ORDERED: SECONDARY IV SET 1 EA INFUS.SET MC ONE ×3 (00:56→19:18)
[2016-08-14] MEDS: AZTREONAM 1 G in IV NS 0.9% 100 ML IV SCH ×3 (01:04→17:55)
[2016-08-14] MEDS: LEVOFLOXACIN 250 MG /D5W 50 ML 250 MG in PREMIX 1 EA IV SCH (02:13)
--- NOTE | 2016-08-14 04:00 | NUR ---
ELEVATED HR: INFORMED ANDONIAVirginia AGAIN REGARDING PT'S HR HIGHEST 156, PT AWAKE, AGITATED, VS TAKENA ND RECORDED, PER MD CONTINUE MONITORING THE PT
[2016-08-14] MEDS: INSULIN REGULAR, HUMAN 100 UNIT/ML 3 ML VIAL SQ PRN ×2 (06:11→16:57)
[2016-08-14] MEDS: BLOOD SUGAR DIAGNOSTIC 1 EACH STRIP IN SCH ×4 (06:11→22:19)
--- NOTE | 2016-08-14 06:12 | NUR ---
BLOOD SUGAR CHECK: BLOOD SUGAR REVEAL 141, NO INSULIN COVERAGE GIVEN PT ON NPO, WILL MONITOR PT FOR ANY S/S OF HYPOGLYCEMIA, PT ON NS AT TKO
[2016-08-14 06:30] LABS: BASOPHILS % (AUTO) 0.2 % (0.0-2.0); EOSINOPHILS # (AUTO) 0.3 /CMM (0.0-0.7); EOSINOPHILS % (AUTO) 1.6 % (0.0-6.0); HEMATOCRIT 34 % (39-51); HEMOGLOBIN 11.4 g/dL (13.5-17.5); LYMPHOCYTES # (AUTO) 1.5 /CMM (0.8-4.8); LYMPHOCYTES % (AUTO) 8.5 % (20.0-44.0); MEAN CORPUSCULAR HEMOGLOBIN 31 PG (26.0-33.0); MEAN CORPUSCULAR HGB CONC 34 g/dl (31.0-36.0); MEAN CORPUSCULAR VOLUME 90 fL (80-96); MONOCYTES % (AUTO) 11.2 % (2.0-12.0); NEUTROPHILS # (AUTO) 13.7 /CMM (1.8-8.9); NEUTROPHILS % (AUTO) 78.5 % (43.0-81.0); PLATELET COUNT (AUTO) 153 /CMM (150-450); RDW COEFFICIENT OF VARIATION 15.9 (11.5-15.0); RED BLOOD CELL COUNT(AUTO) 3.74 MIL/uL (4.5-6.0); WHITE BLOOD COUNT (AUTO) 17.4 K/uL (4.3-11.0)
--- NOTE | 2016-08-14 06:41 | NUR ---
INTERPRETER AND TRANSLATOR CLOSING NOTES: PT IN BED, AWAKE, REMAINS VERY CONFUSED, A/O X1, ON 2L VIA NC, RESPIRATION EVENA ND UNLABORED, SPO2 REMAINS 92-97%. REMAINS SINUS TACH HR OF 151, MD AWARE, PER MD TO CONTINUE MONITORING THE PT. RIGHT HAND IV ACCES REMAINS PATENT AND FLUSHING WELL, WITH NS AT TKO. PT ON NPO PER MD, FOR SWALLOW EVAL TODAY. VS REMAINS STABLE, NEEDS ATTENDED, BLE KEPT OFFLOADED, SUCTION SET UP IN PLACED. WILL ENDORSE TO DAY RN FOR NATALIE
[2016-08-14 06:54] LABS: CALCIUM, SERUM 8.2 mg/dL (8.5-10.1); CREATININE 1.2 mg/dL (0.6-1.3); PHOSPHORUS 2.5 mg/dL (2.5-4.9); POTASSIUM 4.4 mmol/L (3.5-5.1)
[2016-08-14] MEDS: PANTOPRAZOLE 40 MG TABLET.DR PO SCH (07:30)
--- NOTE | 2016-08-14 07:30 | NUR ---
GASOLINE SERVICE ATTENDANT NOTES PATIENT IN BED, ALERT AND ORIENTED X1, CONFUSED, PATIENT IS NPO AT THIS TIME, CURRENTLY WAITING FOR ST EVAL DUE TO COUGHING WHILE EATING, NO S/SX OF DISTRESS OR PAIN NOTED AT THIS TIME, SITTER AT BEDSIDE, ALL NEEDS ATTENDED, CALL LIGHT WITHIN REACH, WILL CONTINUE TO MONITOR.
[2016-08-14] MEDS: DOCUSATE SODIUM 100 MG CAPSULE PO SCH (08:30)
[2016-08-14] MEDS: CARVEDILOL 3.125 MG TABLET PO SCH ×2 (08:31→16:09)
[2016-08-14] MEDS: clonazePAM 0.5 MG TABLET PO SCH ×3 (08:31→16:08)
[2016-08-14] MEDS: GABAPENTIN 300 MG CAPSULE PO SCH (08:31)
[2016-08-14] MEDS: LISINOPRIL (5MG) 5 MG TABLET PO SCH (08:31)
[2016-08-14] MEDS: PROSOURCE / PROSTAT (PYXIS) 30 ML UDC PO SCH (08:31)
[2016-08-14] MEDS: MAGNESIUM OXIDE 400 MG TABLET PO SCH ×2 (08:31→16:08)
[2016-08-14] MEDS: TRAMADOL HCL 50 MG TABLET PO SCH (08:32)
[2016-08-14] MEDS: MULTIVITAMINS,THERAPEUTIC 1 UDTAB TABLET PO SCH (08:32)
[2016-08-14] MEDS: Z GUARD REMEDY 2 OZ OINT TP SCH (09:29)
[2016-08-14 09:57] LABS: BAND % (MANUAL) 4 % (0.0-5.0); EOSINOPHILS % (MANUAL) 2 % (0-4); LYMPHOCYTES % (MANUAL) 8 % (16-48); MONOCYTES % (MANUAL) 10 % (0-11.0); NEUTROPHILS % (MANUAL) 76 (42-76)
--- NOTE | 2016-08-14 13:50 | NUR ---
NAIL SPECIALIST NOTES PATIENT IS CURRENTLY NPO WITH NO IV FLUIDS, WAITING FOR ST EVAL, INFORMED DR. SEAY BECAUSE PATIENT IS DIABETIC, PER MD, ORDER D5 1/2 NS AT 80ML/HR, ORDER NOTED AND CARRIED OUT. PATIENT A/OX1, NO S/SX OF HYPOGLYCEMIA AT THIS TIME, ALL NEEDS ATTENDED AND MET, TURNED AND REPOSITIONED, KEPT SKIN CLEAN AND DRY, CALL LIGHT WITHIN REACH, WILL CONTINUE TO MONITOR.
[2016-08-14] MEDS: IV D5/0.45 NACL 1,000 ML IV PRN (14:39)
--- NOTE | 2016-08-14 18:49 | NUR ---
LIQUID CHLORINE OPERATOR NOTES PATIENT IN BED, ALERT AND ORIENTED, CONFUSED, NO DISTRESS NOTED, NO S/SX OF HYPO/HYPERGLYCEMIA, D5 1/2 NS IVF ONGOING, PIV PATENT AND INTACT, PATIENT CONTINUES TO BE ON NPO, STILL WAITING FOR ST EVAL, PATIENT IS ON TELE MONITOR AND SHOWS SINUS RHYTHM 90S WITH EPISODES OF SINUS TACHY 150, PATIENT IS ASYMPTOMATIC, NO S/SX OF DISTRESS, NO COMPLAINT OF CHEST PAIN, Addendum: 08/14/16 at 1853 by RIVERA ARCE RN ADDENDUM: TURNED AND REPOSITIONED SCHEDULED, KEPT SKIN CLEAN AND DRY, CALL LIGHT WITHIN REACH, WILL ENDORSE TO STEAMING MACHINE OPERATOR FOR NATALIE.
--- NOTE | 2016-08-14 19:05 | NUR ---
RN NOTE RECEIVED REPORT. PT AAOX1-2, CONFUSED. NO S/S OF ANY DISTRESS AT THIS TIME. ON NC 3L. IV INTACT AND PATENT, TOLERATING FLUIDS WELL. SKIN WARM TO TOUCH, NON-DIAPHORETIC. TELE SHUT DOWN AT THIS TIME FOR MAINTENECEN. WILL CONT TO MONITOR.
--- NOTE | 2016-08-14 19:30 | NUR ---
RN NOTE TELE UP AND RUNNING. SHOWING ST IN 140'S. PT ASYMPTOMATIC, WILL MONITOR.
--- NOTE | 2016-08-14 21:15 | NUR ---
RN NOTE MD HANNA MADE AWARE OF PT PULSE IN HIGH 140'S, PT AGITATED/SCREAMING, HAS HAND ON RIGHT CHEST SAYING "AIR". NC ON 5L O2 SAT AT 95%. WILL CARRY OUT NEW ORDERS.
--- NOTE | 2016-08-14 21:22 | NUR ---
RN NOTE PT APPEARS CALM TELE SHOWS SR IN 90'S. PRN ORDER FROM JACQUES HELD DUE TO PATIENT PULSE RATE. WILL CONT TO MONITOR.
[2016-08-14] MEDS ORDERED: METOPROLOL TARTRATE INJ 5 MG/5 ML AMPUL IVP PRN (21:30)
[2016-08-14] MEDS: ATORVASTATIN 10 MG TABLET PO SCH (21:47)
[2016-08-14] MEDS ORDERED: METOPROLOL TARTRATE INJ 5 MG/5 ML AMPUL ONE (23:48)
[2016-08-15] VITALS: BP 159/118
--- NOTE | 2016-08-15 | NUR ---
PT'S BS IS 232, NO INSULIN GIVEN DUE TO PT BEING NPO AND THE RISK OF HYPOGLYCEMIA. Addendum: 08/15/16 at 9148 by ALEJANDRO GOOD RN NOTE MEANT FOR 0 ON 08/15
[2016-08-15] MEDS: AZTREONAM 1 G in IV NS 0.9% 100 ML IV SCH ×3 (01:27→17:13)
[2016-08-15] MEDS ORDERED: SECONDARY IV SET 1 EA INFUS.SET MC ONE (03:51)
[2016-08-15] MEDS: LEVOFLOXACIN 250 MG /D5W 50 ML 250 MG in PREMIX 1 EA IV SCH (03:52)
[2016-08-15] MEDS: IV D5/0.45 NACL 1,000 ML IV PRN (03:57)
--- NOTE | 2016-08-15 06:33 | NUR ---
RN NOTE NO SIGNIFICANT CHANGES OVERNIGHT. NO S/S OF ANY DISTRESS AT THIS TIME. TELE SHOWS SR - PT HAD MULTIPLE ST EPISODES (IN 140'S) THIS SHIFT - BUT WAS ASYMPTOMATIC. MD AWARE. KEPT CLEAN AND COMFORTABLE !:1 SITTER AT BEDSIDE. WILL ENDORSE TO DAY SHIFT FOR NATALIE.
[2016-08-15] MEDS: BLOOD SUGAR DIAGNOSTIC 1 EACH STRIP IN SCH ×4 (06:57→21:16)
--- NOTE | 2016-08-15 07:30 | NUR ---
MANAGING CONSULTANT CLINICAL PROFESSOR NOTES PATIENT IN BED, ASLEEP, NO S.SX OF DISTRESS NOTED, IVF INFUSING AND TOLERATING WELL, NEEDS ATTENDED, SITTER 1:1 AT BEDSIDE, CALL LIGHT WITHIN REACH, WILL CONTINUE TO MONITOR.
[2016-08-15 08:00] VITALS: BP 143/84
[2016-08-15] MEDS: DOCUSATE SODIUM 100 MG CAPSULE PO SCH (08:47)
[2016-08-15] MEDS: MULTIVITAMINS,THERAPEUTIC 1 UDTAB TABLET PO SCH (08:47)
[2016-08-15] MEDS: PROSOURCE / PROSTAT (PYXIS) 30 ML UDC PO SCH (08:48)
[2016-08-15] MEDS: GABAPENTIN 300 MG CAPSULE PO SCH (08:48)
[2016-08-15] MEDS: PANTOPRAZOLE 40 MG TABLET.DR PO SCH (08:48)
[2016-08-15] MEDS: CARVEDILOL 3.125 MG TABLET PO SCH ×2 (08:48→16:24)
[2016-08-15] MEDS: MAGNESIUM OXIDE 400 MG TABLET PO SCH ×2 (08:48→16:24)
[2016-08-15] MEDS: TRAMADOL HCL 50 MG TABLET PO SCH (08:48)
[2016-08-15] MEDS: clonazePAM 0.5 MG TABLET PO SCH ×3 (08:48→16:24)
[2016-08-15] MEDS: LISINOPRIL (5MG) 5 MG TABLET PO SCH (08:48)
[2016-08-15] MEDS: Z GUARD REMEDY 2 OZ OINT TP SCH (08:49)
--- NOTE | 2016-08-15 09:00 | NUR ---
LOAD HAUL DUMP OPERATOR NOTES INFORMED DR. SEAY RE: PATIENT'S EPISODE OF SINUS TACHYCARDIA, NO NEW ORDER AT THIS TIME, ALSO ST EVAL IS STILL PENDING, ASKED MD IF ITS OK TO GIVE MEDICINE CRUSHED WITH APPLESAUCE AND HE STATED "ITS FINE." ALL NEEDS ATTENDED, WILL CONTINUE TO MONITOR.
[2016-08-15 09:40] LABS: BASOPHILS % (AUTO) 0.3 % (0.0-2.0); EOSINOPHILS # (AUTO) 0.2 /CMM (0.0-0.7); EOSINOPHILS % (AUTO) 1.5 % (0.0-6.0); HEMATOCRIT 36 % (39-51); HEMOGLOBIN 12.2 g/dL (13.5-17.5); LYMPHOCYTES % (AUTO) 7.5 % (20.0-44.0); MEAN CORPUSCULAR HEMOGLOBIN 31 PG (26.0-33.0); MEAN CORPUSCULAR HGB CONC 34 g/dl (31.0-36.0); MEAN CORPUSCULAR VOLUME 89 fL (80-96); MONOCYTES # (AUTO) 1.4 /CMM (0.1-1.30); MONOCYTES % (AUTO) 10.6 % (2.0-12.0); NEUTROPHILS # (AUTO) 10.5 /CMM (1.8-8.9); NEUTROPHILS % (AUTO) 80.1 % (43.0-81.0); PLATELET COUNT (AUTO) 140 /CMM (150-450); RDW COEFFICIENT OF VARIATION 15.4 (11.5-15.0); RED BLOOD CELL COUNT(AUTO) 3.98 MIL/uL (4.5-6.0); WHITE BLOOD COUNT (AUTO) 13.1 K/uL (4.3-11.0)
[2016-08-15] MEDS: INSULIN REGULAR, HUMAN 100 UNIT/ML 3 ML VIAL SQ PRN ×2 (12:34→21:22)
--- NOTE | 2016-08-15 15:36 | NUR ---
CIGAR ROLLER NOTES DISCUSSED WITH DR. SEAY IF HE WANTS TO GIVE AN ALTERNATIVE TO TOUJEO INSULIN , PER MD, HOLD MEDICATION, PATIENT IS CURRENTLY NPO AT THIS TIME.
[2016-08-15 16:00] VITALS: BP 109/55
--- NOTE | 2016-08-15 18:53 | NUR ---
INFORMATION WRITER NOTES NO SIGNIFICANT CHANGE DURING THIS SHIFT, PIV ON RIGHT HAND PATENT AND INTACT, IVF INFUSING, NO S.SX OF HYPO/HYPERGLYCEMIA, SITTER AT BEDSIDE, ALL NEEDS ATTENDED, CALL LIGHT WITHIN REACH, WILL ENDORSE TO PER ASSESSMENT NURSE FOR NATALIE.
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
[2016-08-15 20:00] VITALS: BP 112/60
[2016-08-15] MEDS: ATORVASTATIN 10 MG TABLET PO SCH (21:15)
[2016-08-16 00:15] VITALS: BP 140/69
--- NOTE | 2016-08-16 01:45 | NUR ---
UPON HOURLY ROUNDS PT'S IV NOTED TO BE INFILTRATED, ATTEMPTED TO START IV X1 UNSUCCESSFULLY, CHARGE NURSE LEONA NOTIFIED, SHE ATTEMPTED TO INSERT IV BUT DID NOT FIND ANY VIABLE VEINS, ICU NURSE REQUESTED TO COME TO ATTEMPT INSERTING IV, WILL CONTINUE TO MONITOR CLOSELY.
--- NOTE | 2016-08-16 02:15 | NUR ---
MD DUNHAM NOTIFIED OF PT'S IV INFILTRATION, AND PT'S HARD STICK DISPOSITION, ALSO OF PT'S VIOLENT BEHAVIOR WHEN ATTEMPTING TO INITIATE IV ACCESS, ORDER FOR MIDLINE IN AM RECEIVED, WILL CONTINUE TO MONITOR CLOSELY BS FOR S/S OF HYPOGLYCEMIA.
--- NOTE | 2016-08-16 02:35 | NUR ---
ICU NURSE ATTEMPTED TO START IV ACCESS UNSUCCESSFULLY, PT IS HARD STICK AND BECOMES VIOLENT WHEN ATTEMPTING TO INSERT IV, WILL NOTIFY MD AND CONTINUE TO MONITOR CLOSELY Addendum: 08/16/16 at 0243 by ALEJANDRO GOOD RN NOTE MEANT FOR 08/16/16 AT 0201
--- NOTE | 2016-08-16 02:40 | NUR ---
NOTIFIED OF PT'S CONDITION OF BEING HARD STICK AND COMBATIVE, EXPLAINED THAT MULTIPLE NURSES WERE UNABLE TO START IV LINE, ATTEMPTED BY ASSIGNED NURSE, CHARGE NURSE, AND ICU NURSE, MADE AWARE THAT PT IS DIABETIC AND HAS TWO ANTIBIOTIC SCHEDULE ONE FOR 0200 AND ONE FOR 299, MD ORDER MIDLINE AND HE IAWARE THAT MIDLINE WILL BE INSERTED AT 0700 Addendum: 08/16/16 at 0346 by ALEJANDRO GOOD RN OK TO HOLD ANTIBIOTICS AND IVF UNTIL MIDLINE IS INSERTED IN AM, WILL CONTINUE TO MONITOR PT FOR S/S OF HYPOGLYCEMIA.
[2016-08-16] MEDS: BLOOD SUGAR DIAGNOSTIC 1 EACH STRIP IN SCH ×4 (06:49→21:49)
[2016-08-16] MEDS: PANTOPRAZOLE 40 MG TABLET.DR PO SCH ×2 (06:49→08:29)
--- NOTE | 2016-08-16 07:27 | NUR ---
REAL ESTATE LAWYER INITIAL NOTE RECEIVED PT AWAKE IN BED IN NO ACUTE SIGNS OF DISTRESS. SITTER AT BEDSIDE. ALERT AND ORIENTED X 1, APPEARS COMFORTABLE. ENDORSED FROM PRINCIPAL SOFTWARE ENGINEER THAT PT FOR MID-LINE INSERTION AT 7AM TODAY, BUT NOBODY CAME TO DO UP TO THIS TIME, WILL F/U. ON TELE-MONITORING WITH CURRENT READING OF SR AND HR OF 84, NO SIGNS OF CHEST PAIN OBSERVED OR VOICED. ON 02 VIA N/C @ 2LPM, NO SOB NOTED. BED IN LOW POSITION AND LOCKED WITH SIDE-RAILS UP X2. CALL LIGHT WITHIN REACH. SAFETY MEASURES WILL BE MAINTAINED AT ALL TIMES. WILL CONTINUE TO MONITOR ACCORDINGLY.
--- NOTE | 2016-08-16 07:30 | NUR ---
ASSISTANT BUSINESS MANAGER CLOSING NOTE PT IS STABLE AND COMFORTABLE, ENDORSED TO INCOMING NURSE FOR NATALIE.
[2016-08-16 08:07] LABS: CALCIUM, SERUM 8.3 mg/dL (8.5-10.1); PHOSPHORUS 2.5 mg/dL (2.5-4.9); POTASSIUM 3.6 mmol/L (3.5-5.1)
[2016-08-16] MEDS: MAGNESIUM OXIDE 400 MG TABLET PO SCH ×2 (08:28→17:41)
[2016-08-16] MEDS: GABAPENTIN 300 MG CAPSULE PO SCH (08:29)
[2016-08-16] MEDS: DOCUSATE SODIUM 100 MG CAPSULE PO SCH (08:29)
[2016-08-16] MEDS: clonazePAM 0.5 MG TABLET PO SCH ×3 (08:29→17:40)
[2016-08-16] MEDS: MULTIVITAMINS,THERAPEUTIC 1 UDTAB TABLET PO SCH (08:29)
[2016-08-16] MEDS: PROSOURCE / PROSTAT (PYXIS) 30 ML UDC PO SCH (08:30)
[2016-08-16] MEDS: LISINOPRIL (5MG) 5 MG TABLET PO SCH (08:30)
[2016-08-16] MEDS: Z GUARD REMEDY 2 OZ OINT TP SCH (08:32)
[2016-08-16] MEDS: CARVEDILOL 3.125 MG TABLET PO SCH ×2 (08:38→17:41)
[2016-08-16] MEDS: TRAMADOL HCL 50 MG TABLET PO SCH (08:38)
--- NOTE | 2016-08-16 09:45 | NUR ---
RN NOTES CALLED AND PAGE SPEECH THERAPY TO DO SWALLOW EVALUATION.
[2016-08-16] MEDS: INSULIN REGULAR, HUMAN 100 UNIT/ML 3 ML VIAL SQ PRN ×3 (12:06→21:55)
--- NOTE | 2016-08-16 12:12 | NUR ---
RN NOTES PATIENT DISCONTINUED ON TELE-MONITORING. NO C/O PAIN , N & V. WILL CONTINUE TO MONITOR.
--- NOTE | 2016-08-16 13:52 | NUR ---
RN NOTES PATIENT WAS INSERTED WITH MIDLINE AT RIGHT UPPER ARM BY ICU NURSE.
[2016-08-16] MEDS: AZTREONAM 1 G in IV NS 0.9% 100 ML IV SCH ×2 (13:55→21:47)
[2016-08-16] MEDS: LEVOFLOXACIN 250 MG /D5W 50 ML 250 MG in PREMIX 1 EA IV SCH (14:03)
[2016-08-16 16:00] VITALS: BP 116/62
--- NOTE | 2016-08-16 19:08 | NUR ---
MS RN CLOSING NOTES PATIENT RESTING IN BED WITH SITTER AT BEDSIDE. ALERT AND ORIENTED X 1 WITH PERIODS OF CONFUSION NOTED DURING THE DAY. ON 02 VIA N/C AT 2LPM, BREATHING EVEN WITH NO SOB NOTED. MIDLINE ON RIGHT UPPER ARM INTACT AND PATENT WITH IVF OF NS AT 75ML INFUSING WELL, NO S/S OF INFILTRATION NOTED. ALL DUE MEDS GIVEN ORDERED AND TOLERATED. ALL NEEDS AND CARE PROVIDED WELL. CALL LIGHT WITHIN REACH. BED LOW AND LOCKED WITH SIDE-RAILS UP X 2. ALL SAFETY MEASURES MAINTAINED. ENDORSED TO LIVE OUT NANNY FOR NATALIE.
--- NOTE | 2016-08-16 19:30 | NUR ---
MS RN INITIAL NOTE RECEIVED PT AWAKE. CONFUSED AND COMBATIVE AT TIMES ACCORDING TO AM NURSE. SITTER AT BEDSIDE. PT CURRENTLY APPEARS COMFORTABLE. MID-LINE INSERTION DONE, PT HAS FLUIDS D51/2 NS AT 80ML/HR AND TOLERATING WELL, NO COMPLAINTS OR SIGNS OF PAIN/RESPIRATORY DISTRESS NOTED DURING PHYSICAL ASSESSMENT, PT ON 02 VIA N/C @ 2LPM, NO SOB NOTED. BED IN LOW POSITION AND LOCKED WITH SIDE-RAILS UP X2. CALL LIGHT WITHIN REACH. SAFETY MEASURES WILL BE MAINTAINED AT ALL TIMES, NEEDS WILL BE ANTICIPATED AND ATTENDED PROMPTLY.
[2016-08-16] MEDS: ATORVASTATIN 10 MG TABLET PO SCH (21:49)
[2016-08-16] MEDS ORDERED: INSULIN DETEMIR 100 UNIT/ML CARTRIDGE SQ SCH (22:00)
[2016-08-16] MEDS: IV D5/0.45 NACL 1,000 ML IV PRN (23:53)
[2016-08-16] MEDS: DEXTROSE 50%-WATER 50 ML DISP.SYRIN IV PRN (23:56)
--- NOTE | 2016-08-17 | NUR ---
PT'S BS IS 44 UPON ACCUCHEK, PROTOCOL INITIATED D50% GIVEN ORDERED, WILL RE-CHECK BS SHORTLY AND MONITOR PT CLOSELY.
--- NOTE | 2016-08-17 00:15 | NUR ---
AFTER ADMINISTERING D50% PT'S BS IS 152, WILL CONTINUE TO MONITOR.
[2016-08-17] MEDS: LEVOFLOXACIN 250 MG /D5W 50 ML 250 MG in PREMIX 1 EA IV SCH (03:36)
[2016-08-17] MEDS: AZTREONAM 1 G in IV NS 0.9% 100 ML IV SCH ×2 (05:06→12:00)
--- NOTE | 2016-08-17 06:30 | NUR ---
UPON CHECKING BS LEVEL, PT RESULT IS 23, PROTOCOL INITIATED, WILL RE-CHECK BS SHORTLY TO VERIFY EFFECTIVENESS.
[2016-08-17] MEDS: BLOOD SUGAR DIAGNOSTIC 1 EACH STRIP IN SCH ×2 (06:37→12:02)
[2016-08-17] MEDS: DEXTROSE 50%-WATER 50 ML DISP.SYRIN IV PRN (06:37)
--- NOTE | 2016-08-17 06:50 | NUR ---
AFTER RE-CHECKING BS LEVEL RESULT IS 169, D50% EFFECTIVE, WILL CONTINUE TO MONITOR CLOSELY FOR ANY SIGNS OF HYPOGLYCEMIA.
--- NOTE | 2016-08-17 07:04 | NUR ---
MS RN CLOSING NOTE PT IS STABLE, CLEAN AND COMFORTABLE, WILL ENDORSE TO INCOMING NURSE EPISODES OF HYPOGLYCEMIA, TO CLOSELY MONITOR PT'S CONDITION, ALSO TO F/U WITH MD INSULIN COVERAGE PT IS CLEAN/DRY AND COMFORTABLE, ALL NEEDS HAVE BEEN MET, REPORT WILL BE GIVEN TO INCOMING NURSE FOR NATALIE.
[2016-08-17 08:00] VITALS: BP 101/63
--- NOTE | 2016-08-17 08:00 | NUR ---
MS RN NOTES PATIENT IN BED RESTING NO SOB OR ACUTE DISTRESS NOTED. SITTER AT BEDSIDE. BED IN LOW LOCKED POSITION. MIDLINE INTACT PATENT. DAVE LIGHT WITHIN REACH. WILL CONTINUE TO MONITOR.
[2016-08-17] MEDS: MULTIVITAMINS,THERAPEUTIC 1 UDTAB TABLET PO SCH (08:51)
[2016-08-17] MEDS: DOCUSATE SODIUM 100 MG CAPSULE PO SCH (08:51)
[2016-08-17] MEDS: clonazePAM 0.5 MG TABLET PO SCH ×2 (08:51→12:00)
[2016-08-17] MEDS: GABAPENTIN 300 MG CAPSULE PO SCH (08:51)
[2016-08-17] MEDS: TRAMADOL HCL 50 MG TABLET PO SCH (08:52)
[2016-08-17] MEDS: MAGNESIUM OXIDE 400 MG TABLET PO SCH (08:53)
[2016-08-17 08:54] VITALS: BP 98/76
[2016-08-17] MEDS: CARVEDILOL 3.125 MG TABLET PO SCH (08:54)
[2016-08-17] MEDS: LISINOPRIL (5MG) 5 MG TABLET PO SCH (08:54)
[2016-08-17] MEDS: PROSOURCE / PROSTAT (PYXIS) 30 ML UDC PO SCH (08:55)
[2016-08-17] MEDS: Z GUARD REMEDY 2 OZ OINT TP SCH (08:56)
--- NOTE | 2016-08-17 10:00 | NUR ---
MS RN NOTES PATIENT SEEN AND EVALUATED BY DR. SEAY ORDERS NOTED AND CARRIED OUT.
[2016-08-17] MEDS: INSULIN REGULAR, HUMAN 100 UNIT/ML 3 ML VIAL SQ PRN (12:04)
--- NOTE | 2016-08-17 14:00 | NUR ---
MS RN NOTES PATIENT DISCHARGED TO [facility]. REPORT GIVEN TO RN EARLY [employer] S[employer]OL PSYCHOLOGIST MAXX. PATIENT MIDLINE INTACT PATENT. PATIENT TO CONTINUE IV ANTIBIOTICS AT SNF. DISCHARGE PROTOCOL FOLLOWED. DISCHARGE INSTRUCTIONS PROVIDED TO RN AT SNF. AWARE OF ALL ABNORMAL LABS. PATIENT CONFUSED ORIENTED X1. TRANSFERRED TO SNF VIA [facility].
[2016-08-17] MEDS ORDERED: LACTOBACILLUS RHAMNOSUS GG 1 EACH CAP.SPRINK PO SCH (17:00)
== END 2016-08-17 14:23 | DRG 871 ==
LOC: ER 02:00 → TELE 02:46 → MED 08-16 10:24
PROVIDERS: ADMIT Family Medicine; ATTEND Family Medicine
PROC: 05H533Z Insertion of Infusion Device into Right Subclavian Vein, Percutaneous Approach (ICD-10-PCS; principal; 2016-08-16)
DX: A41.50 Gram-negative sepsis, unspecified (principal); G93.40 Encephalopathy, unspecified; J15.6 Pneumonia due to other Gram-negative bacteria; J96.01 Acute respiratory failure with hypoxia; N17.9 Acute kidney failure, unspecified; I50.32 Chronic diastolic (congestive) heart failure; I47.1 Supraventricular tachycardia; I13.0 Hypertensive heart and chronic kidney disease with heart failure and stage 1 through stage 4 chronic kidney disease, or unspecified chronic kidney disease; E87.2 Acidosis; K21.9 Gastro-esophageal reflux disease without esophagitis; F03.90 Unspecified dementia, unspecified severity, without behavioral disturbance, psychotic disturbance, mood disturbance, and anxiety; N18.9 Chronic kidney disease, unspecified; Z86.73 Personal history of transient ischemic attack (TIA), and cerebral infarction without residual deficits; R13.10 Dysphagia, unspecified; E78.5 Hyperlipidemia, unspecified; E11.22 Type 2 diabetes mellitus with diabetic chronic kidney disease; E11.649 Type 2 diabetes mellitus with hypoglycemia without coma; R65.20 Severe sepsis without septic shock
CPT/HCPCS: 36415; 71010-TC; 80048-TC; 80053-TC; 80061-TC; 82248-TC; 82962-TC; 83605-TC; 83735-TC; 84100-TC; 84484-TC; 85025-TC; 87040-TC; 87081-TC; 92526; 92611-TC; 93307-TC; 94799-TC; A4216; A4606; J1815; J1956; J3490; J7030; Z7610